=== PATIENT | female | born 1995 | race Caucasian/White ===

== ENCOUNTER 2023-07-15 08:38 | Outpatient (CLI) | payer BC, SELFPAY ==
[2023-07-15 09:18] LABS: Basophils % 0.8 % (0.1-2.0); Eosinophils # 0.1 K/mm3 (0.0-0.4); Eosinophils % 1.6 % (0.1-12.0); Hemoglobin 13.4 g/dL (12.2-16.2); Lymphocytes # 1.5 K/mm3 (0.7-4.5); Lymphocytes % 32.2 % (10-50); Mean Corpuscular HGB Conc 32.7 g/dL (31.8-35.4); Mean Corpuscular Hemoglobin 31.1 pg (27.0-31.2); Mean Platelet Volume 8.3 fl (7.4-10.4); Monocytes # 0.3 K/mm3 (0.1-1.0); Monocytes % 6.5 % (1.7-9.3); Neutrophils # 2.7 K/mm3 (1.8-7.8); Neutrophils % 58.8 % (37.0-80.0); Platelet Count 285 K/mm3 (142-424); Red Blood Count 4.32 M/mm3 (4.20-5.40); Red Cell Distribution Width 13.9 % (11.5-17.5); White Blood Count 4.6 K/mm3 (4.8-10.8)
[2023-07-15 09:53] LABS: Chloride 107 mmol/L (98-107)
[2023-07-15 09:54] LABS: Sodium 140 mmol/L (136-145)
[2023-07-15 09:56] LABS: Alanine Aminotransferase 38 U/L (12-78); Alkaline Phosphatase 100 U/L (38-126); Aspartate Amino Transferase 39 U/L (14-36); Bilirubin,Total 0.4 mg/dl (0.2-1.3); Blood Urea Nitrogen 9 mg/dl (7-17); Estimated Glomerular Filt Rate 118 ml/min (>60); GFR (African American) 143 ML/MIN (>60)
[2023-07-15 09:57] LABS: Albumin Level 3.9 g/dl (3.5-5.0); Albumin/Globulin Ratio 1.5 (1.1-1.8); Carbon Dioxide 30 mmol/L (22.0-30.0); Chol/HDL Ratio 3.8 (1-3.5); Cholesterol 114 mg/dl (140-200); Globulin 2.6 g/dL (1.3-3.2); Glucose 91 mg/dl (74-100); HDL Cholesterol 30 mg/dl (40-60); Total Protein,Serum 6.5 g/dl (6.3-8.2); Triglycerides 82 mg/dl (30-150); VLDL Cholesterol 16 mg/dL (0-40)
[2023-07-15 10:08] LABS: Direct LDL Cholesterol 70.81 mg/dL (100-129)
[2023-07-15 10:14] LABS: 25-OH Vitamin D, Total 19.3 ng/mL (30-100)
[2023-07-15 10:27] LABS: Thyroid Stimulating Hormone 1.66 uIU/mL (0.465-4.68)
[2023-07-15 11:01] LABS: Hemoglobin A1C 5.4 % (4.0-6.0)
== END 2023-07-15 23:59 | disposition home or self-care (01) ==
LOC: LAB 08:44
PROVIDERS: PCP Internal Medicine Adolescent Medicine; Visit Provider Internal Medicine Adolescent Medicine
DX: Z00.00 Encounter for general adult medical examination without abnormal findings (principal); Z83.3 Family history of diabetes mellitus; Z86.39 Personal history of other endocrine, nutritional and metabolic disease; E55.9 Vitamin D deficiency, unspecified; R74.01 Elevation of levels of liver transaminase levels; D72.819 Decreased white blood cell count, unspecified
CPT/HCPCS: 36415; 80053; 80061; 82306; 83036; 84443; 85025

== ENCOUNTER 2023-11-02 10:29 | Outpatient (CLI) | payer BC, SELFPAY ==
[2023-11-02 12:47] LABS: HCG,Quantitative 13454 mIU/ml (0-5.42)
[2023-11-03 12:12] LABS: Progesterone 7.1 ng/mL (.)
== END 2023-11-02 23:59 | disposition home or self-care (01) ==
LOC: LAB 10:30
PROVIDERS: PCP Internal Medicine Adolescent Medicine; Visit Provider Obstetrics & Gynecology
DX: Z34.90 Encounter for supervision of normal pregnancy, unspecified, unspecified trimester (principal)
CPT/HCPCS: 36415; 84144; 84702

== ENCOUNTER 2023-11-04 07:11 | Outpatient (CLI) | payer BC, SELFPAY ==
[2023-11-04 10:17] LABS: HCG,Quantitative 18596 mIU/ml (0-5.42)
== END 2023-11-04 23:59 | disposition home or self-care (01) ==
LOC: LAB 07:13
PROVIDERS: PCP Internal Medicine Adolescent Medicine; Visit Provider Obstetrics & Gynecology
DX: Z34.90 Encounter for supervision of normal pregnancy, unspecified, unspecified trimester (principal)
CPT/HCPCS: 36415; 84702

== ENCOUNTER 2023-11-09 10:38 | Outpatient (CLI) | payer BC, SELFPAY ==
--- NOTE | 2023-11-09 10:38 | US_ITS ---
PROCEDURE: US OB <= 14 WEEKS FETUS CLINICAL INDICATION: dates COMPARISON: No exams were available for comparison FINDINGS: Transvaginal sonographic images of the pelvis were obtained. From her last menstrual period she is 7weeks 5days. An intrauterine gestational sac is present with a pole with a crown-rump length of 10 mm This correlates to a gestational age of 7weeks 1day. ASHLEY 06/26/2024 heart tones are present with an FHR of 139bpm. Yolk sac is noted. The yolk sac measures 5.4 mm. The right ovary is seen and appears normal. The left ovary is seen and appears normal. There is no fluid in the cul-de-sac. IMPRESSION: 1. Viable fetus within the uterine cavity. 2. [place]-rump length is 10 mm consistent with a fetus 7 weeks 1 day, ASHLEY 06/26/2024. 3. Both ovaries are seen and appear normal. 4. No fluid in the cul-de-sac. Dictated by: Robert Frost MD 11/09/2023 13:47 Robert Frost MD in [place] 11/09/2023 13:47
== END 2023-11-09 23:59 | disposition home or self-care (01) ==
LOC: RAD 10:38
PROVIDERS: PCP Internal Medicine Adolescent Medicine; Visit Provider Obstetrics & Gynecology
DX: Z34.91 Encounter for supervision of normal pregnancy, unspecified, first trimester (principal); E55.9 Vitamin D deficiency, unspecified; R79.89 Other specified abnormal findings of blood chemistry; Z3A.01 Less than 8 weeks gestation of pregnancy
CPT/HCPCS: 76801

== ENCOUNTER 2023-11-09 12:03 | Outpatient (CLI) | payer BC, SELFPAY ==
[2023-11-09 12:54] LABS: Basophils # 0.1 K/mm3 (0-0.2); Basophils % 0.6 % (0.1-2.0); Eosinophils # 0.1 K/mm3 (0.0-0.4); Eosinophils % 0.7 % (0.1-12.0); Hematocrit 42.3 % (37.0-47.0); Hemoglobin 13.4 g/dL (12.2-16.2); Lymphocytes # 1.8 K/mm3 (0.7-4.5); Lymphocytes % 18.2 % (10-50); Mean Corpuscular HGB Conc 31.7 g/dL (31.8-35.4); Mean Corpuscular Volume 94.7 fl (81-99); Mean Platelet Volume 7.9 fl (7.4-10.4); Monocytes # 0.5 K/mm3 (0.1-1.0); Neutrophils # 7.5 K/mm3 (1.8-7.8); Neutrophils % 75.6 % (37.0-80.0); Platelet Count 319 K/mm3 (142-424); Red Blood Count 4.47 M/mm3 (4.20-5.40); Red Cell Distribution Width 14.4 % (11.5-17.5)
[2023-11-10 09:38] LABS: HCV Ab Non Reactive (Non Reactive); Hepatitis B Surface Antigen Negative (Negative)
[2023-11-10 11:00] LABS: HIV (1&2) Antibody Rapid NONREACTIVE (NONREACTIVE)
[2023-11-10 12:13] LABS: Rapid Plasma Reagin Ab Titer Non Reactive titer (NonRea<1:1); Rubella Antibodies, IgG <0.90 index (Immune >0.99)
[2023-11-11 21:40] LABS: Neisseria gonorrhoeae, NAA Negative (Negative)
== END 2023-11-09 23:59 | disposition home or self-care (01) ==
LOC: LAB 12:04
PROVIDERS: PCP Internal Medicine Adolescent Medicine; Visit Provider Obstetrics & Gynecology
DX: Z34.90 Encounter for supervision of normal pregnancy, unspecified, unspecified trimester (principal)
CPT/HCPCS: 86803; 86703; 36415; 85025; 86593; 86762; 86850; 87086; 87340; 87491; 87591

== ENCOUNTER 2024-01-26 08:10 | Outpatient (CLI) | payer BC, SELFPAY ==
[2024-01-26 09:10] LABS: Basophils # 0.1 K/mm3 (0-0.2); Basophils % 0.5 % (0.1-2.0); Eosinophils # 0.1 K/mm3 (0.0-0.4); Eosinophils % 0.9 % (0.1-12.0); Hematocrit 38.3 % (37.0-47.0); Hemoglobin 13.2 g/dL (12.2-16.2); Lymphocytes # 1.6 K/mm3 (0.7-4.5); Lymphocytes % 14.6 % (10-50); Mean Corpuscular HGB Conc 34.6 g/dL (31.8-35.4); Mean Corpuscular Hemoglobin 31.7 pg (27.0-31.2); Mean Corpuscular Volume 91.7 fl (81-99); Monocytes # 0.4 K/mm3 (0.1-1.0); Monocytes % 3.8 % (1.7-9.3); Neutrophils # 8.6 K/mm3 (1.8-7.8); Neutrophils % 80.2 % (37.0-80.0); Platelet Count 268 K/mm3 (142-424); Red Blood Count 4.17 M/mm3 (4.20-5.40); Red Cell Distribution Width 14.1 % (11.5-17.5); White Blood Count 10.7 K/mm3 (4.8-10.8)
[2024-01-26 09:22] LABS: Activated Partial Thrombo Time 29.1 seconds (22.8-30.6); Fibrinogen 430 mg/dL (229.9-363.5); INR 0.91 (0.9-1.1); Prothrombin Time 10.3 seconds (10.1-12.5)
[2024-01-26 09:29] LABS: Alanine Aminotransferase 20 U/L (12-78); Aspartate Amino Transferase 21 U/L (14-36); Blood Urea Nitrogen 6 mg/dl (7-17); Calcium 8.9 mg/dl (8.4-10.2); Carbon Dioxide 20 mmol/L (22.0-30.0); Chloride 106 mmol/L (98-107); Estimated Glomerular Filt Rate 145 ml/min (>60); GFR (African American) 175 ML/MIN (>60); Glucose 99 mg/dl (74-100); Sodium 135 mmol/L (136-145); Uric Acid 4.2 mg/dl (2.5-6.2)
[2024-01-26 09:48] LABS: Collection Time,Urine 24 hours; Total Volume,Urine 1800 mL (600-1600)
[2024-01-26 09:50] LABS: Patient Height,Urine 64 inches; Patient Weight,Urine 241 lbs
[2024-01-26 10:00] LABS: Total Protein 24 Hour,Urine 180 mg/24 hr (40-90)
[2024-01-26 10:04] LABS: Creatinine 24 Hour,Urine 1656 mg/24hr (630-2500); Creatinine Clearance Urine 188.6 mL/min (25-115); Creatinine,Urine Random 92 mg/dL (Not Estab.)
== END 2024-01-26 23:59 | disposition home or self-care (01) ==
LOC: LAB 08:10
PROVIDERS: PCP Internal Medicine Adolescent Medicine; Visit Provider Obstetrics & Gynecology
DX: Z34.92 Encounter for supervision of normal pregnancy, unspecified, second trimester (principal); Z3A.18 18 weeks gestation of pregnancy
CPT/HCPCS: 36415; 80048; 82575; 84155; 84450; 84460; 84550; 85025; 85384; 85610; 85730

== ENCOUNTER 2024-02-07 08:55 | Outpatient (CLI) | payer BC, SELFPAY ==
--- NOTE | 2024-02-07 08:56 | US_ITS ---
PROCEDURE: US OB /MATERNAL DETAIL CLINICAL INDICATION: 20 wk + Anatomy Scan COMPARISON: US US OB <= 14 WEEKS FETUS from 11/09/2023 FINDINGS: Transabdominal sonographic images of the pelvis were obtained. From her established due date she is 20 weeks 4 days. Single viable intrauterine gestation. Cephalic position. Placenta: Posteriorplacenta grade 1. There is an average amount of fluid. The cervix appears satisfactory. Closed and measuring 3.7 cm in length. Complete survey performed and was unremarkable on the submitted images as in PACS. No discrete anomalies identified on survey imaging by technologist. Difficult exam due to body habitus and position. Active fetus. Three-vessel cord with satisfactory umbilical cord insertion. 4- chamber heart noted. Situs, aortic arch, LVOT, RVOT, three-vessel view appear normal. Survey of brain & ventricles Unremarkable. Cerebellum, thalamus, choroid plexus, cisterna magna appear normal. Face and neck survey unremarkable. Profile, nasion, lips and nose appeared normal. Diaphragm and chest views unremarkable. Abdomen: Both kidneys noted and unremarkable. Stomach and bladder noted and satisfactory. Spine: Survey of the spine satisfactory with no anomalies identified nor imaged. Cervical, thoracic, lower spine appear normal. Both arms and legs noted. Amniotic Fluid: Adequate. MVP 4.22 cm Measurements: Average ultrasound age 20weeks 5days. Estimated due date by ultrasound age presentation 06/21/2024. Estimated weight 358g BPD = 20weeks 5days HC = 20weeks 3days AC = 20weeks 3days FL = 20weeks 6days Growth Percentile= 41 Heart Rate = 143bpm Cerebellum = 19weeks 6days Humerus = 20weeks 5days FL/BPD is 0.71 FL/AC is 0.23 IMPRESSION: 1. Viable fetus in the cephalic with a posterior placenta grade 1. 2. The fluid is within normal limits. MVP 4.22 cm 3. Anatomical scan appears normal but incomplete due to position. 4. Suggest repeat scan in 2-3 weeks to look at the heart, nose and lips. 5. biometry is consistent with the dates. Dictated by: Robert Frost MD 02/07/2024 12:25 Robert Frost MD in [place] 02/07/2024 12:25
== END 2024-02-07 23:59 | disposition home or self-care (01) ==
LOC: RAD 08:56
PROVIDERS: PCP Internal Medicine Adolescent Medicine; Visit Provider Obstetrics & Gynecology
DX: Z36.3 Encounter for antenatal screening for malformations (principal); Z3A.20 20 weeks gestation of pregnancy
CPT/HCPCS: 76811

== ENCOUNTER 2024-03-17 09:15 | Outpatient (CLI) | payer BC, SELFPAY ==
[2024-03-17 10:14] LABS: Glucose,Fasting 103 mg/dl (74-100)
[2024-03-17 11:15] LABS: Glucose 1 Hour 116 mg/dL (74-100)
== END 2024-03-17 23:59 | disposition home or self-care (01) ==
LOC: RAD 09:16
PROVIDERS: PCP Internal Medicine Adolescent Medicine; Visit Provider Obstetrics & Gynecology
DX: Z34.90 Encounter for supervision of normal pregnancy, unspecified, unspecified trimester (principal)
CPT/HCPCS: 36415; 82951

== ENCOUNTER 2024-03-21 14:15 | Outpatient (CLI) | payer BC, SELFPAY ==
--- NOTE | 2024-03-21 14:18 | US_ITS ---
PROCEDURE: US OB FOLLOW UP CLINICAL INDICATION: incomplete views of heart, nose and lips. COMPARISON: US US OB <= 14 WEEKS FETUS from 11/09/2023 US US OB /MATERNAL DETAIL from 02/07/2024 FINDINGS: Transabdominal sonographic images of the pelvis were obtained. The following parameters are obtained: From her established due date she is 26weeks 5days Viable fetus in the cephalic presentation with a posterior placenta grade 1. The cervix measures 5.17 cm heart rate: 129bpm bpm. BPD: 28weeks 3days, 88 percentile HC: 27weeks 5days, 53 percentile AC: 26weeks 5days, 38 percentile FL: 26weeks 6days, 38 percentile HC/AC: 1.15 FL/BPD: 0.71 FL/AC: 0.22 Growth percentile: 45 Amniotic fluid: MVP 4.09 cm No obvious anomalies evident. profile seen, stomach, bladder, kidneys, three-vessel cord, four chamber heart appear normal. profile is seen and appears normal. lips and nose appeared normal. heart: Four-chamber heart, three-vessel view, RVOT, LVOT appear normal. IMPRESSION: 1. Viable fetus in the cephalic presentation with a posterior placenta grade 1. 2. The fluid is within normal limits MVP 4.09 cm. 3. Limited anatomical scan appears normal. 4. Lips, nose and heart were seen and the anatomy appears normal. 5. There has been good interval growth with the fetus currently 45th percentile. Dictated by: Robert Frost MD 03/21/2024 16:49 Robert Frost MD in [place] 03/21/2024 16:49
== END 2024-03-21 23:59 | disposition home or self-care (01) ==
LOC: RAD 14:16
PROVIDERS: PCP Internal Medicine Adolescent Medicine; Visit Provider Obstetrics & Gynecology
DX: Z34.90 Encounter for supervision of normal pregnancy, unspecified, unspecified trimester (principal); Z36.2 Encounter for other antenatal screening follow-up; I10 Essential (primary) hypertension; E66.9 Obesity, unspecified
CPT/HCPCS: 76816

== ENCOUNTER 2024-05-11 10:19 | Outpatient (CLI) | payer BC, SELFPAY ==
--- NOTE | 2024-05-11 10:22 | US_ITS ---
PROCEDURE: US OB BIOPHYSICAL PROFILE CLINICAL INDICATION: GHTN COMPARISON: US US OB <= 14 WEEKS FETUS from 11/09/2023 US US OB /MATERNAL DETAIL from 02/07/2024 US US OB FOLLOW UP from 03/21/2024 FINDINGS: Transabdominal sonographic images of the uterus were obtained. From her established due date she is 34weeks 0 days. The following parameters are obtained: Viable Fetus in the cephalic presentation with a posterior placenta grade 2. Average ultrasound age is 35weeks 4days Estimated weight 2,600g, 5 lb 12 oz The cervix measures 4.42 cm. Measurements: heart Rate = 147bpm BPD = 36weeks 2days, 95 percentile HC = 36weeks 4days, 77 percentile AC = 35weeks 5days, 91 percentile FL = 33weeks 2days, 20 percentile HC/AC is 1.02 FL/BPD is 0.72 FL/AC is 0.2 77 percentile Amniotic fluid index: 11.12cm, MVP 4.59 cm Qualitative AFV:2 Breathing movements: 0 Gross Body Movements: 2 Tone: 2 Biophysical profile score: 6 No obvious anomalies evident.Kidneys, stomach, bladder, four-chamber heart, three-vessel cord appear normal. IMPRESSION: 1. Viable fetus in the cephalic presentation with a posterior placenta grade 2. 2. The fluid is within normal limits with an amniotic fluid index 11.12 cm, MVP 4.59 cm. 3. Biophysical profile is 6/8 with no breathing movement seen today but good movement seen. 4. There has been good interval growth with the fetus currently 77th percentile. 5. Limited anatomical scan appears normal. 6. Dr. Farrell was informed of the lack of breathing movement and the patient was sent to labor and delivery. Dictated by: Robert Frost MD 05/12/2024 08:50 Robert Frost MD in [place] 05/12/2024 08:50
[2024-05-11 11:38] LABS: Basophils # 0.1 K/mm3 (0-0.2); Basophils % 0.4 % (0.1-2.0); Eosinophils # 0.1 K/mm3 (0.0-0.4); Eosinophils % 0.5 % (0.1-12.0); Hematocrit 35.8 % (37.0-47.0); Hemoglobin 12.1 g/dL (12.2-16.2); Lymphocytes # 1.3 K/mm3 (0.7-4.5); Lymphocytes % 11.5 % (10-50); Mean Corpuscular HGB Conc 33.8 g/dL (31.8-35.4); Mean Corpuscular Hemoglobin 30.3 pg (27.0-31.2); Mean Corpuscular Volume 89.5 fl (81-99); Mean Platelet Volume 9.9 fl (7.4-10.4); Monocytes # 0.6 K/mm3 (0.1-1.0); Monocytes % 5.4 % (1.7-9.3); Neutrophils # 9.3 K/mm3 (1.8-7.8); Neutrophils % 80.6 % (37.0-80.0); Platelet Count 261 K/mm3 (142-424); Red Cell Distribution Width 13.6 % (11.5-17.5); White Blood Count 11.6 K/mm3 (4.8-10.8)
[2024-05-11 11:48] VITALS: BP 137/84; PULSE 105; RESP 20; TEMP 36.7; O2SAT 95; BMI 43.9
[2024-05-11 12:02] LABS: Activated Partial Thrombo Time 27.3 seconds (22.8-30.6); Fibrinogen 510 mg/dL (229.9-363.5); Prothrombin Time 10.2 seconds (10.1-12.5)
[2024-05-11 12:06] LABS: Creatinine,Urine Random 37 mg/dL (Not Estab.)
[2024-05-11 12:16] LABS: Microscopic, Urine URINE MICROSCOPIC (MICROSCOPIC)
[2024-05-11 12:29] LABS: Appearance,Urine CLEAR (Clear); Bilirubin,Urine Negative (Negative); Blood, Urine Negative (Negative); Color,Urine YELLOW (Yellow); Glucose,Urine (UA) Negative (Negative); Ketones,Urine Negative (Negative); Leukocyte Esterase,Urine TRACE (Negative); Nitrate,Urine Negative (Negative); PH,Urine 7.5 (5.0-8.5); Protein,Urine Negative (Negative); Specific Gravity, Urine 1.015 (1.005-1.030); Urobilinogen,Urine 0.2 EU/dl (0.2)
[2024-05-11 12:44] LABS: Alanine Aminotransferase 21 U/L (12-78); Albumin Level 3.4 g/dl (3.5-5.0); Albumin/Globulin Ratio 1.3 (1.1-1.8); Alkaline Phosphatase 100 U/L (38-126); Aspartate Amino Transferase 43 U/L (14-36); Blood Urea Nitrogen 8 mg/dl (7-17); Calcium 9.1 mg/dl (8.4-10.2); Carbon Dioxide 23 mmol/L (22.0-30.0); Chloride 106 mmol/L (98-107); Creatinine Clearance Estimated 148 mL/min (50-200); Estimated Glomerular Filt Rate 145 ml/min (>60); GFR (African American) 175 ML/MIN (>60); Globulin 2.6 g/dL (1.3-3.2); Glucose 67 mg/dl (74-100); Sodium 132 mmol/L (136-145)
[2024-05-11 12:47] LABS: RBC,Urine Occasional #/hpf (0-3); Squamous Epithelial Cell,Urine Occasional #/hpf (0-5)
[2024-05-11 12:48] LABS: Bacteria,Urine 1+ /lpf
[2024-05-11 13:00] LABS: Bilirubin,Total < 0.1 mg/dl (0.2-1.3)
[2024-05-11 18:44] LABS: Benzodiazepines Screen,Urine Negative ng/ml (<200)
[2024-05-11 18:45] LABS: Amphetamine/Metha Screen,Urine Negative ng/ml (<1000); Barbiturates Screen,Urine Negative ng/ml (<200)
[2024-05-11 18:47] LABS: Cannabinoid Screen,Urine Negative ng/ml (<50)
[2024-05-11 18:48] LABS: Cocaine Screen,Urine Negative ng/ml (<300)
[2024-05-11 18:49] LABS: Methadone Screen,Urine Negative ng/ml (<300); Opiate Screen,Urine Negative ng/ml (<300)
[2024-05-11 18:50] LABS: Phencyclidine Screen,Urine Negative ng/ml (<25)
== END 2024-05-11 13:30 | disposition home or self-care (01) ==
LOC: RAD 10:19 → OBOUT 11:35 → OB 11:35
PROVIDERS: Obstetrics & Gynecology; PCP Internal Medicine Adolescent Medicine; Visit Provider Obstetrics & Gynecology
DX: O10.913 Unspecified pre-existing hypertension complicating pregnancy, third trimester (principal); O36.8330 Maternal care for abnormalities of the fetal heart rate or rhythm, third trimester, not applicable or unspecified; Z3A.34 34 weeks gestation of pregnancy
CPT/HCPCS: 36415; 59025; 76816; 76819; 80053; 80307; 81001; 82570; 84156; 84550; 85025; 85384; 85610; 85730

== ENCOUNTER 2024-05-12 08:53 | Outpatient (CLI) | payer BC, SELFPAY ==
[2024-05-12 09:11] VITALS: BP 142/76; PULSE 118; RESP 18; TEMP 36.6; O2SAT 100; BMI 43.9
--- NOTE | 2024-05-12 10:30 | US_ITS ---
PROCEDURE INFORMATION: Exam: US Biophysical Profile Without Non-Stress Test Exam date and time: 05/12/2024 10:16 AM Age: 28 years old Clinical indication: Screening exam; Routine US screening of fetus; Third trimester (>=28 weeks 0 days); ; Additional info: Repeat bpp TECHNIQUE: Imaging protocol: US biophysical profile without non-stress testing. Total images: 1139 COMPARISON: US OB BIOPHYSICAL PROFILE 05/11/2024 10:28 AM FINDINGS: heart rate: 165 bpm Amniotic fluid index: TYLER is 8.06 cm. BIOPHYSICAL PROFILE: breathing (BPP): 2 /2 gross body movement (BPP): 2 /2 tone (BPP): 2 /2 Amniotic fluid (BPP): 2 /2 Biophysical profile score (BPP): 8 /8 MATERNAL ANATOMY: Cervix: Cervical length measures 4.98 cm. IMPRESSION: Biophysical profile score 8/8.
== END 2024-05-12 11:25 | disposition home or self-care (01) ==
LOC: OBOUT 08:55 → OB 08:56
PROVIDERS: PCP Internal Medicine Adolescent Medicine; Visit Provider Obstetrics & Gynecology
DX: O10.913 Unspecified pre-existing hypertension complicating pregnancy, third trimester (principal); Z3A.34 34 weeks gestation of pregnancy
CPT/HCPCS: 59025; 76819

== ENCOUNTER 2024-05-14 16:12 | Observation (INO) | payer BC, SELFPAY ==
[2024-05-14 16:25] VITALS: BMI 43.9
[2024-05-14 17:07] VITALS: BP 136/81; PULSE 93; RESP 17; TEMP 37.1; O2SAT 96; BMI 43.9
[2024-05-14 17:21] LABS: Microscopic, Urine URINE MICROSCOPIC (MICROSCOPIC)
[2024-05-14 17:26] LABS: Basophils % 0.4 % (0.1-2.0); Eosinophils # 0.1 K/mm3 (0.0-0.4); Eosinophils % 0.8 % (0.1-12.0); Hematocrit 36.5 % (37.0-47.0); Hemoglobin 12.4 g/dL (12.2-16.2); Lymphocytes # 1.5 K/mm3 (0.7-4.5); Lymphocytes % 15.1 % (10-50); Mean Corpuscular Hemoglobin 30.2 pg (27.0-31.2); Mean Corpuscular Volume 88.8 fl (81-99); Mean Platelet Volume 10.3 fl (7.4-10.4); Monocytes # 0.6 K/mm3 (0.1-1.0); Monocytes % 5.9 % (1.7-9.3); Neutrophils # 7.6 K/mm3 (1.8-7.8); Neutrophils % 76.4 % (37.0-80.0); Platelet Count 275 K/mm3 (142-424); Red Blood Count 4.11 M/mm3 (4.20-5.40); Red Cell Distribution Width 13.7 % (11.5-17.5); White Blood Count 9.9 K/mm3 (4.8-10.8)
[2024-05-14 17:30] LABS: Appearance,Urine CLEAR (Clear); Bilirubin,Urine Negative (Negative); Blood, Urine TRACE-L (Negative); Color,Urine YELLOW (Yellow); Glucose,Urine (UA) Negative (Negative); Ketones,Urine Negative (Negative); Leukocyte Esterase,Urine TRACE (Negative); Nitrate,Urine Negative (Negative); PH,Urine 6.5 (5.0-8.5); Protein,Urine Negative (Negative); Specific Gravity, Urine <= 1.005 (1.005-1.030); Urobilinogen,Urine 0.2 EU/dl (0.2)
[2024-05-14 17:33] LABS: Total Protein,Urine Random < 5.0 mg/dL (0.0-12.0)
[2024-05-14] MEDS: BETAMETHASONE ACET/PHOS 6MG/ML 5ML MDV 12 MG IM (17:36)
[2024-05-14] MEDS: LABETALOL 100MG TABLET 200 MG PO (17:36)
[2024-05-14 17:47] LABS: Bacteria,Urine Trace /lpf; RBC,Urine Occasional #/hpf (0-3); WBC,Urine Occasional #/hpf (0-3)
[2024-05-14 17:55] LABS: Alanine Aminotransferase 31 U/L (12-78); Albumin Level 3.9 g/dl (3.5-5.0); Albumin/Globulin Ratio 1.3 (1.1-1.8); Alkaline Phosphatase 114 U/L (38-126); Anion Gap 9.9 mEq/L (5-15); Aspartate Amino Transferase 39 U/L (14-36); Bilirubin,Total 0.2 mg/dl (0.2-1.3); Blood Urea Nitrogen 8 mg/dl (7-17); Calcium 9.1 mg/dl (8.4-10.2); Carbon Dioxide 22 mmol/L (22.0-30.0); Chloride 107 mmol/L (98-107); Creatinine Clearance Estimated 148 mL/min (50-200); Estimated Glomerular Filt Rate 145 ml/min (>60); GFR (African American) 175 ML/MIN (>60); Glucose 86 mg/dl (74-100); Potassium 3.9 mmoL/L (3.5-5.1); Sodium 135 mmol/L (136-145); Total Protein,Serum 6.9 g/dl (6.3-8.2); Uric Acid 3.9 mg/dl (2.5-6.2)
[2024-05-14 18:01] LABS: Fibrinogen 486 mg/dL (208.1-352.0)
[2024-05-14 18:33] LABS: Creatinine,Urine Random 175 mg/dL (Not Estab.)
[2024-05-14 20:36] VITALS: BP 141/78; PULSE 109; RESP 21; TEMP 36.9; O2SAT 97
[2024-05-15 00:11] VITALS: BP 143/81; PULSE 105; O2SAT 97
[2024-05-15 04:22] VITALS: BP 125/81; PULSE 95; RESP 18; TEMP 36.7; O2SAT 96
[2024-05-15 08:52] VITALS: BP 131/82; PULSE 111; RESP 18; TEMP 37; O2SAT 97
[2024-05-15] MEDS: LABETALOL 100MG TABLET 200 MG PO (09:00)
--- NOTE | 2024-05-15 09:19 | P.HP_ITS ---
History of Present Illness *Admission Date: 05/14/24 *Reason for visit:: chronic hypertension *History of present illness: Jennifer Nobles is a 28-year-old at 34 weeks and 4 days gestation who was sent to labor and delivery for evaluation of blood pressures. Her has been chronic hypertension and obesity. She has been taking labetalol 100mg BID which was increased to 200mg BID on admission. On presentation patient endorsed good movement and denies any leakage of fluid or vaginal bleeding. O+, antibody negative, rubella non-immune, hepatitis B negative, hepatitis C negative, RPR negative, HIV negative 1 hour GTT: 116 GBS unknown PFSH PFS Disclaimer: The information contained in this section may have been updated after the patient was seen, as this information can be updated by other users. Medical History Chronic hypertension Vitamin D deficiency Surgical History No significant past surgical history Family History Other Hypertension Social History (Updated 05/15/24 @ 04:43 by Karlene Wilks RN) Smoking Status: Never smoker alcohol intake: never current occupational status: employed Travel in the last 8 weeks: None Have you lived/traveled outside US in past 30 days?: No Contact w/someone who lives/traveled outside US past 30 days?: No Exposure to someone with infectious disease in past 14 days?: No Do you have a fever (greater than 100.4 F or 38 C)?: No Have you tested positive for COVID-19: No Exposed to someone with COVID-19 in past 14 days?: No Do you have a sore throat?: No Do you have a cough?: No Do you have any weakness?: No Are you experiencing any nausea/vomitting?: No Do you have any diarrhea?: No Are you experiencing any unusual bleeding?: No Do you have any muscle aches/pain?: No Do you have any abdominal pain?: No Are you experiencing loss of taste or smell?: No Other Medical History Have you received the Flu Vaccine for this season: No Have you received the Pneumonia Vaccine: No Review of Systems Review of Systems Review of systems (narrative): Review of Systems Constitutional: Denies fever, chills, and sweats Eyes: Denies vision change/ pain Respiratory: Denies cough and shortness of breath Cardiovascular: Denies chest pain and lightheadedness Gastrointestinal: Denies abdominal pain or contractions. Denies nausea, vomiting. Genitourinary: Denies dysuria and incontinence Musculoskeletal: Denies shoulder pain and back pain Neurological: Denies change in speech or headaches Meds Home Medications and Allergies Home Medications ?Medication ?Instructions ?Recorded ?Confirmed ?Type ergocalciferol (vitamin D2) 1,250 50,000 unit PO WEEKLY 07/22/23 05/14/24 History mcg (50,000 unit) capsule vits no.126-ferrous fum tab PO 12/30/23 05/14/24 History 28 mg iron-folic acid 800 mcg tablet (Classic ) aspirin 81 mg tablet,delayed 81 mg PO DAILY 01/24/24 05/14/24 History release (Adult Aspirin Regimen) labetalol 100 mg tablet 100 mg PO BID #60 tabs 02/21/24 05/14/24 Rx New Prescriptions to Start Prescriptions: Allergies Allergy/AdvReac Type Severity Reaction Status Date / Time No Known Allergies Allergy Verified 05/14/24 14:59 Exam Data for Last 24 hours Vital signs and Labs for Last 24 Hours: Temp Pulse Resp BP Pulse Ox O2 Del Method 98.6 F 111 H 18 131/82 97 Room Air 05/15/24 08:52 05/15/24 08:52 05/15/24 08:52 05/15/24 08:52 05/15/24 08:52 05/15/24 08:52 Laboratory Results - last 24 hr 05/14/24 16:30: Urine Creatinine 175, Urine Total Protein < 5.0 05/14/24 16:50: WBC 9.9, RBC 4.11 L, Hgb 12.4, Hct 36.5 L, MCV 88.8, MCH 30.2, MCHC 34.0, RDW 13.7, Plt Count 275, MPV 10.3, Neut % (Auto) 76.4, Lymph % (Auto) 15.1, [place] % (Auto) 5.9, Eos % (Auto) 0.8, Baso % (Auto) 0.4, Neut # (Auto) 7.6, Lymph # (Auto) 1.5, [place] # (Auto) 0.6, Eos # (Auto) 0.1, Baso # (Auto) 0.0, Fibrinogen 486 H, Sodium 135 L, Potassium 3.9, Chloride 107, Carbon Dioxide 22, Anion Gap 9.9, BUN 8, Creatinine 0.50 L, Estimated Creat Clear 148, Estimated GFR 145, Est GFR ( Amer) 175, Glucose 86, Uric Acid 3.9, Calcium 9.1, Total Bilirubin 0.2, AST 39 H, ALT 31, Alkaline Phosphatase 114, Total Protein 6.9, Albumin 3.9, Globulin 3.0, Albumin/Globulin Ratio 1.3, Urine Color Yellow, Urine Appearance Clear, Urine pH 6.5, Ur Specific [place] <= 1.005, Urine Protein Negative, Urine Glucose (UA) Negative, Urine Ketones Negative, Urine Blood Trace-l, Urine Nitrate Negative, Urine Bilirubin Negative, Urine Urobilinogen 0.2, Ur Leukocyte Esterase Trace, Urine RBC Occasional, Urine WBC Occasional, Ur Squamous Epith Cells 3-5, Urine Bacteria Trace I & O for Last 24 hours: Intake & Output 05/12/24 05/13/24 05/14/24 05/15/24 23:59 23:59 23:59 23:59 Weight 264 lb Narrative: General: patient is alert oriented in no acute distress and responds appropriately to questions. HEENT: NCAT, EOMI, moist mucous membranes, neck supple with full ROM Cardiovascular: RRR +S1/S2, no murmurs or rubs Pulmonary: Clear to auscultation bilaterally, nonlabored breathing, symmetric chest rise Abdominal: Gravid abdomen appropriate for gestation. No guarding, rebound, or tenderness noted. Extremities: +2 edema, no tenderness or cyanosis noted Skin: Normal turgor, intact, warm. Negative for erythema, pallor, petechia, or lesions Neurologic: Negative for sensory or motor deficit Psychiatric: Normal affect, normal thought process, good judgment and insight, no depression or anxious mood appreciated. *Routine HEENT Exam Head: Present normocephalic and atraumatic Eye: Present EOMI, PERRL and normal accommodation; Absent conjunctival icterus, scleral injection, nystagmus or exophthalmos ENT: Present mucous membranes moist *Routine Respiratory Exam Respiratory: Present CTA bilaterally, normal respiratory effort, able to speak in complete sentences and symmetric chest movement; Absent accessory muscle use, decreased breath sounds, rales, respiratory distress, wheezes, distant breath sounds or diminished air movement *Routine Cardiovascular Exam Cardiovascular: Present RRR, Normal S1 and Normal S2; Absent murmur or gallop *Routine Abdominal Exam Abdominal: Present soft and normoactive bowel sounds; Absent tenderness, distended, rebound or guarding *Routine Rectal Exam Rectal:: deferred *Routine Genitalia Exam Genitalia:: normal female Assessment and Plan *Assessment and plan (1) Chronic hypertension: Status: Acute Category: Medical Code(s): I10 - Essential (primary) hypertension (2) Obesity: Status: Acute Category: Medical Code(s): E66.9 - Obesity, unspecified (3) 34 weeks gestation of : Status: Acute Category: Medical Code(s): Z3A.34 - 34 weeks gestation of Plan #Chronic Hypertension - Monitor vitals - Admit to L&D for blood pressure monitoring - NST q6 hours - Blood type: O+ - Hemoglobin: 12.4, Plt: 275 - Initiate 24hour urine - Increase labetalol for 200mg BID - PIH labs on abmission and once daily - Discussed the risks and benefits of steroids. With shared decision making pt elected to proceed with steroids for FLM. 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
[2024-05-15 13:14] LABS: Basophils # 0.1 K/mm3 (0-0.2); Basophils % 0.3 % (0.1-2.0); Hematocrit 34.1 % (37.0-47.0); Hemoglobin 11.5 g/dL (12.2-16.2); Lymphocytes # 1.4 K/mm3 (0.7-4.5); Lymphocytes % 9.3 % (10-50); Mean Corpuscular HGB Conc 33.7 g/dL (31.8-35.4); Mean Corpuscular Hemoglobin 30.3 pg (27.0-31.2); Mean Corpuscular Volume 89.7 fl (81-99); Mean Platelet Volume 10.2 fl (7.4-10.4); Monocytes # 0.5 K/mm3 (0.1-1.0); Monocytes % 3.1 % (1.7-9.3); Neutrophils # 13.3 K/mm3 (1.8-7.8); Neutrophils % 85.6 % (37.0-80.0); Platelet Count 273 K/mm3 (142-424); Red Cell Distribution Width 13.8 % (11.5-17.5); White Blood Count 15.6 K/mm3 (4.8-10.8)
[2024-05-15 13:19] LABS: Chloride 105 mmol/L (98-107)
[2024-05-15 13:20] LABS: Albumin Level 3.6 g/dl (3.5-5.0); Potassium 3.8 mmoL/L (3.5-5.1); Sodium 133 mmol/L (136-145)
[2024-05-15 13:22] LABS: Anion Gap 13.8 mEq/L (5-15); Blood Urea Nitrogen 9 mg/dl (7-17); Carbon Dioxide 18 mmol/L (22.0-30.0); Creatinine Clearance Estimated 148 mL/min (50-200); Estimated Glomerular Filt Rate 145 ml/min (>60); GFR (African American) 175 ML/MIN (>60)
[2024-05-15 13:23] LABS: Alanine Aminotransferase 38 U/L (12-78); Albumin/Globulin Ratio 1.2 (1.1-1.8); Alkaline Phosphatase 104 U/L (38-126); Aspartate Amino Transferase 38 U/L (14-36); Bilirubin,Total 0.2 mg/dl (0.2-1.3); Calcium 8.7 mg/dl (8.4-10.2); Globulin 2.9 g/dL (1.3-3.2); Total Protein,Serum 6.5 g/dl (6.3-8.2)
[2024-05-15 13:46] LABS: Glucose 185 mg/dl (74-100)
[2024-05-15 13:57] LABS: MANUAL DIFFERENTIAL MANUAL DIFFERENTIAL (MANUAL DIFF)
[2024-05-15 14:15] LABS: Activated Partial Thrombo Time 26.1 seconds (22.5-28.5); Fibrinogen 500 mg/dL (208.1-352.0); INR 0.88 (0.9-1.1); Prothrombin Time 9.8 seconds (9.2-12.1)
[2024-05-15 14:38] LABS: Uric Acid 3.8 mg/dl (2.5-6.2)
[2024-05-15 15:01] LABS: Lymphocytes % 21 % (10-50); Neutrophils % 79 % (42-76); Total Cells Counted 100
[2024-05-15 15:02] LABS: Platelet Estimate Normal; RBC Morphology Normal
[2024-05-15 15:39] VITALS: BP 145/87; PULSE 114; RESP 17; TEMP 36.9; O2SAT 98
--- NOTE | 2024-05-15 17:16 | P.DS_ITS ---
General Admission date:: 05/14/24 Discharge date: 05/15/24 HPI HPI HPI: Jennifer Nobles is a 28-year-old at 34 weeks and 4 days gestation who was sent to labor and delivery for evaluation of blood pressures. Her has been chronic hypertension and obesity. She has been taking labetalol 100mg BID which was increased to 200mg BID on admission. On presentation patient endorsed good movement and denies any leakage of fluid or vaginal bleeding. O+, antibody negative, rubella non-immune, hepatitis B negative, hepatitis C negative, RPR negative, HIV negative 1 hour GTT: 116 GBS unknown Hospital Course Hospital Course Hospital Course: Jennifer was admitted for observation. Her blood pressure medicine was increased from 100 to 200 mg of labetalol twice daily. Her blood pressure remained stable during her hospital course. She had serial PIH labs completed. She completed a 24-hour urine. She completed betamethasone x 2 for lung maturity. We are currently evaluating her for chronic hypertension with elevated pressures versus chronic hypertension with superimposed preeclampsia. At time of discharge 24- hour urine was pending. She has a follow-up on with a blood pressure check and she will follow-up subsequently on Tuesday. Strict return precautions were reviewed with the patient in detail to include increased blood pressure, vision changes, headaches, and right upper quadrant pain. Patient and significant other voiced understanding. Exam Data for Last 24 hours Vital signs and Labs for Last 24 Hours: Temp Pulse Resp BP Pulse Ox O2 Del Method 98.4 F 114 H 17 145/87 H 98 Room Air 05/15/24 15:39 05/15/24 15:39 05/15/24 15:39 05/15/24 15:39 05/15/24 15:39 05/15/24 15:39 Laboratory Results - last 24 hr 05/14/24 16:30: Urine Creatinine 175, Urine Total Protein < 5.0 05/14/24 16:50: WBC 9.9, RBC 4.11 L, Hgb 12.4, Hct 36.5 L, MCV 88.8, MCH 30.2, MCHC 34.0, RDW 13.7, Plt Count 275, MPV 10.3, Neut % (Auto) 76.4, Lymph % (Auto) 15.1, [place] % (Auto) 5.9, Eos % (Auto) 0.8, Baso % (Auto) 0.4, Neut # (Auto) 7.6, Lymph # (Auto) 1.5, [place] # (Auto) 0.6, Eos # (Auto) 0.1, Baso # (Auto) 0.0, Fibrinogen 486 H, Sodium 135 L, Potassium 3.9, Chloride 107, Carbon Dioxide 22, Anion Gap 9.9, BUN 8, Creatinine 0.50 L, Estimated Creat Clear 148, Estimated GFR 145, Est GFR ( Amer) 175, Glucose 86, Uric Acid 3.9, Calcium 9.1, Total Bilirubin 0.2, AST 39 H, ALT 31, Alkaline Phosphatase 114, Total Protein 6.9, Albumin 3.9, Globulin 3.0, Albumin/Globulin Ratio 1.3, Urine Color Yellow, Urine Appearance Clear, Urine pH 6.5, Ur Specific [place] <= 1.005, Urine Protein Negative, Urine Glucose (UA) Negative, Urine Ketones Negative, Urine Blood Trace-l, Urine Nitrate Negative, Urine Bilirubin Negative, Urine Urobilinogen 0.2, Ur Leukocyte Esterase Trace, Urine RBC Occasional, Urine WBC Occasional, Ur Squamous Epith Cells 3-5, Urine Bacteria Trace 05/15/24 13:05: WBC 15.6 H D, RBC 3.80 L, Hgb 11.5 L, Hct 34.1 L, MCV 89.7, MCH 30.3, MCHC 33.7, RDW 13.8, Plt Count 273, MPV 10.2, Neut % (Auto) 85.6 H, Lymph % (Auto) 9.3 L, [place] % (Auto) 3.1, Eos % (Auto) 0.0 L, Baso % (Auto) 0.3, Neut # (Auto) 13.3 H, Lymph # (Auto) 1.4, [place] # (Auto) 0.5, Eos # (Auto) 0.0, Baso # (Auto) 0.1, Total Counted 100, Neutrophils % (Manual) 79 H, Lymphocytes % (Manual) 21, Platelet Estimate Normal, RBC Morphology Normal, PT 9.8, INR 0.88 L , APTT 26.1, Fibrinogen 500 H, Sodium 133 L, Potassium 3.8, Chloride 105, Carbon Dioxide 18 L, Anion Gap 13.8, BUN 9, Creatinine 0.50 L, Estimated Creat Clear 148, Estimated GFR 145, Est GFR ( Amer) 175, Glucose 185 H D, Uric Acid 3.8, Calcium 8.7, Total Bilirubin 0.2, AST 38 H, ALT 38, Alkaline Phosphatase 104, Total Protein 6.5, Albumin 3.6, Globulin 2.9, Albumin/Globulin Ratio 1.2 I & O for Last 24 hours: Intake & Output 05/12/24 05/13/24 05/14/24 05/15/24 23:59 23:59 23:59 23:59 Weight 264 lb Constitutional Constitutional: no acute distress *Routine HEENT Exam Head: Present normocephalic Eye: Present EOMI and PERRL ENT: Present mucous membranes moist *Routine Neck Exam Neck: Present supple; Absent lymphadenopathy *Routine Respiratory Exam Respiratory: Present CTA bilaterally *Routine Cardiovascular Exam Cardiovascular: Present RRR *Routine Abdominal Exam Abdominal: Present soft and normoactive bowel sounds; Absent tenderness *Routine Extremities Exam Extremities: Absent cyanosis, clubbing or edema *Routine Skin Exam Skin: Present warm; Absent rash *Routine Neurological Exam Neurological: Present alert and oriented X3 Results Data Completed and Pending Labs on day of discharge: Labs from last 24 hours 05/15/24 05/14/24 05/14/24 13:05 16:50 16:30 WBC 15.6 H D 9.9 RBC 3.80 L 4.11 L Hgb 11.5 L 12.4 Hct 34.1 L 36.5 L MCV 89.7 88.8 MCH 30.3 30.2 MCHC 33.7 34.0 RDW 13.8 13.7 Plt Count 273 275 MPV 10.2 10.3 Neut % (Auto) 85.6 H 76.4 Lymph % (Auto) 9.3 L 15.1 [place] % (Auto) 3.1 5.9 Eos % (Auto) 0.0 L 0.8 Baso % (Auto) 0.3 0.4 Neut # (Auto) 13.3 H 7.6 Lymph # (Auto) 1.4 1.5 [place] # (Auto) 0.5 0.6 Eos # (Auto) 0.0 0.1 Baso # (Auto) 0.1 0.0 Total Counted 100 Neutrophils % (Manual) 79 H Lymphocytes % (Manual) 21 Platelet Estimate Normal RBC Morphology Normal PT 9.8 INR 0.88 L APTT 26.1 Fibrinogen 500 H 486 H Sodium 133 L 135 L Potassium 3.8 3.9 Chloride 105 107 Carbon Dioxide 18 L 22 Anion Gap 13.8 9.9 BUN 9 8 Creatinine 0.50 L 0.50 L Estimated Creat Clear 148 148 Estimated GFR 145 145 Est GFR ( Amer) 175 175 Glucose 185 H D 86 Uric Acid 3.8 3.9 Calcium 8.7 9.1 Total Bilirubin 0.2 0.2 AST 38 H 39 H ALT 38 31 Alkaline Phosphatase 104 114 Total Protein 6.5 6.9 Albumin 3.6 3.9 Globulin 2.9 3.0 Albumin/Globulin Ratio 1.2 1.3 Urine Color Yellow Urine Appearance Clear Urine pH 6.5 Ur Specific [place] <= 1.005 Urine Protein Negative Urine Glucose (UA) Negative Urine Ketones Negative Urine Blood Trace-l Urine Nitrate Negative Urine Bilirubin Negative Urine Urobilinogen 0.2 Ur Leukocyte Esterase Trace Urine RBC Occasional Urine WBC Occasional Ur Squamous Epith Cells 3-5 Urine Bacteria Trace Urine Creatinine 175 Urine Total Protein < 5.0 DS: Diagnosis Discharge Diagnosis (1) Chronic hypertension: Status: Acute Code(s): I10 - Essential (primary) hypertension (2) Obesity: Status: Acute Code(s): E66.9 - Obesity, unspecified (3) 34 weeks gestation of : Status: Acute Code(s): Z3A.34 - 34 weeks gestation of Meds Home Medications and Allergies Home Medications ?Medication ?Instructions ?Recorded ?Confirmed ?Type ergocalciferol (vitamin D2) 1,250 50,000 unit PO WEEKLY 07/22/23 05/15/24 History mcg (50,000 unit) capsule vits no.126-ferrous fum 1 tab PO DAILY 12/30/23 05/15/24 History 28 mg iron-folic acid 800 mcg tablet (Classic ) aspirin 81 mg tablet,delayed 81 mg PO DAILY 01/24/24 05/15/24 History release (Adult Aspirin Regimen) labetalol 100 mg tablet 200 mg (2 x 100 mg) PO BID #60 tabs 05/15/24 Rx New Prescriptions to Start Prescriptions: labetalol Tatyana Farrell Allergies Allergy/AdvReac Type Severity Reaction Status Date / Time No Known Allergies Allergy Verified 05/14/24 14:59 Discharge Plan Disposition Patient Disposition: Home, Self-Care Follow up Plan Follow up with: Tatyana Farrell DO [Staff Physician] - Enter time for follow up Prescriptions/Medication Reconciliation: New labetalol 100 mg Tablet 200 mg PO BID Qty: 60 1RF Continued aspirin [Adult Aspirin Regimen] 81 mg tablet,delayed release (DR/EC) 81 mg PO DAILY ergocalciferol (vitamin D2) 1,250 mcg (50,000 unit) capsule 50,000 unit PO WEEKLY Patient Comments: TAKE 1 CAPSULE BY MOUTH ONCE WEEKLY FOR 12 WEEKS Classic 28 mg iron- 800 mcg tablet 1 tab PO DAILY Discontinued labetalol 100 mg tablet 100 mg PO BID Qty: 60 2RF Problem Reconciliation Problems Reviewed?: Yes Patient Discharge Instructions ACTIVITY: Continue current activity DIET: regular diet Print Language: Bel[place]ian Providers Primary Care Provider: Gunnar Almonte Provider: Tatyana Farrell Attending Provider: Tatyana Farrell
[2024-05-15] MEDS: BETAMETHASONE ACET/PHOS 6MG/ML 5ML MDV 12 MG IM (17:43)
[2024-05-15 19:31] LABS: Total Protein,Urine Random < 5.0 mg/dL (0.0-12.0)
[2024-05-15 19:32] LABS: Total Protein 24 Hour,Urine 85 mg/24 hr (40-90); Total Volume,Urine 1700 mL (600-1600)
== END 2024-05-15 19:50 | disposition home or self-care (01) ==
PROVIDERS: Admitting Provider Obstetrics & Gynecology; PCP Internal Medicine Adolescent Medicine; Visit Provider Obstetrics & Gynecology
DX: O10.013 Pre-existing essential hypertension complicating pregnancy, third trimester (principal); Z3A.34 34 weeks gestation of pregnancy; O99.213 Obesity complicating pregnancy, third trimester; E66.9 Obesity, unspecified
CPT/HCPCS: 36415; 59025; 80053; 81001; 82570; 84155; 84156; 84550; 85007; 85025; 85027; 85384; 85610; 85730; G0378; J0702

== ENCOUNTER 2024-05-17 10:08 | Outpatient (CLI) | payer BC, SELFPAY ==
--- NOTE | 2024-05-17 10:16 | US_ITS ---
PROCEDURE: US OB BIOPHYSICAL PROFILE CLINICAL INDICATION: GHTN COMPARISON: US US OB /MATERNAL DETAIL from 02/07/2024 US US OB FOLLOW UP from 03/21/2024 US US OB BIOPHYSICAL PROFILE from 05/11/2024 US US OB BIOPHYSICAL PROFILE from 05/12/2024 FINDINGS: Transabdominal sonographic images of the uterus were obtained. From her established due date she is 34weeks 6days. The following parameters are obtained: Viable Fetus in the cephalic presentation with a fundal placenta grade 2. The cervix measures 3.99-4.54 cm. Measurements: heart Rate = 133bpm Amniotic fluid index: 9.13cm, MVP 2.76 cm. Qualitative AFV:2 Breathing movements: 2 Gross Body Movements: 2 Tone: 2 Biophysical profile score: 8 No obvious anomalies evident.Kidneys, bladder, stomach, four-chamber heart, three-vessel cord appear normal. IMPRESSION: 1. Viable fetus in the cephalic presentation with a fundal placenta grade 2. 2. The fluid is within normal limits with amniotic fluid index 9.13 cm, MVP 2.76 cm. 3. Biophysical profile is 8/8 with good breathing movement and movement seen today. 4. Limited anatomical scan appears normal. Dictated by: Robert Frost MD 05/17/2024 13:23 Robert Frost MD in [place] 05/17/2024 13:23
== END 2024-05-17 23:59 | disposition home or self-care (01) ==
LOC: RAD 10:09
PROVIDERS: PCP Obstetrics & Gynecology; Visit Provider Obstetrics & Gynecology
DX: O13.3 Gestational [pregnancy-induced] hypertension without significant proteinuria, third trimester (principal); Z3A.34 34 weeks gestation of pregnancy
CPT/HCPCS: 76819

== ENCOUNTER 2024-05-25 13:42 | Outpatient (CLI) | payer BC, SELFPAY ==
--- NOTE | 2024-05-25 13:46 | US_ITS ---
PROCEDURE: US OB BIOPHYSICAL PROFILE CLINICAL INDICATION: CHTN COMPARISON: US US OB <= 14 WEEKS FETUS from 11/09/2023 US US OB /MATERNAL DETAIL from 02/07/2024 US OB FOLLOW UP from 03/21/2024 US OB BIOPHYSICAL PROFILE from 05/11/2024 US OB BIOPHYSICAL PROFILE from 05/12/2024 US OB BIOPHYSICAL PROFILE from 05/17/2024 FINDINGS: Transabdominal sonographic images of the uterus were obtained. From her established due date she is 36weeks 0 days. The following parameters are obtained: Viable Fetus in the cephalic presentation with a right lateral placenta grade 2. Average ultrasound age is 37weeks 1day Estimated weight 3,066g, 6 lb 12 oz The cervix measures 3.45 cm. Measurements: heart Rate = 147bpm BPD = 37weeks 0 days, 82 percentile HC = 38weeks 3days, 76 percentile AC = 37weeks 2days, 88 percentile FL = 35weeks 5days, 34 percentile HC/AC is 1.01 FL/BPD is 0.76 FL/AC is 0.21 76 percentile Amniotic fluid index: 9.0cm, MVP 4.52 cm Qualitative AFV:2 Breathing movements: 2 Gross Body Movements: 2 Tone: 2 Biophysical profile score: 8 No obvious anomalies evident.Kidneys, bladder, stomach, four-chamber heart, three-vessel cord appear normal. IMPRESSION: 1. Viable fetus in the cephalic presentation with a right lateral placenta grade 2. 2. The fluid is within normal limits with an amniotic fluid index 9.0 cm, MVP 4.52 cm. 3. Biophysical profile is 8/8 with good breathing movement and movement seen. 4. There has been good interval growth with the fetus currently 76th percentile. 5. Limited anatomical scan appears normal. Dictated by: Robert Frost MD 05/26/2024 09:26 Robert Frost MD in OV 05/26/2024 09:26
== END 2024-05-25 23:59 | disposition home or self-care (01) ==
LOC: RAD 13:44
PROVIDERS: PCP Internal Medicine Adolescent Medicine; Visit Provider Obstetrics & Gynecology
DX: I10 Essential (primary) hypertension (principal); Z34.03 Encounter for supervision of normal first pregnancy, third trimester
CPT/HCPCS: 76816; 76819

== ENCOUNTER 2024-05-26 17:33 | Outpatient (CLI) | payer BC, SELFPAY ==
[2024-05-26 17:38] VITALS: BMI 43.9
[2024-05-26] MEDS: LABETALOL 100MG TABLET 200 MG PO (18:00)
[2024-05-26 18:05] VITALS: BP 143/91; PULSE 103; RESP 16; TEMP 37.2; O2SAT 96; BMI 43.9
[2024-05-26 18:26] LABS: Microscopic, Urine URINE MICROSCOPIC (MICROSCOPIC)
[2024-05-26 18:31] LABS: Basophils # 0.1 K/mm3 (0-0.2); Basophils % 0.6 % (0.1-2.0); Eosinophils # 0.1 K/mm3 (0.0-0.4); Eosinophils % 0.7 % (0.1-12.0); Hematocrit 37.1 % (37.0-47.0); Hemoglobin 12.3 g/dL (12.2-16.2); Lymphocytes # 1.5 K/mm3 (0.7-4.5); Lymphocytes % 15.1 % (10-50); Mean Corpuscular HGB Conc 33.2 g/dL (31.8-35.4); Mean Corpuscular Hemoglobin 29.9 pg (27.0-31.2); Mean Corpuscular Volume 90.3 fl (81-99); Mean Platelet Volume 10.4 fl (7.4-10.4); Monocytes # 0.7 K/mm3 (0.1-1.0); Monocytes % 6.5 % (1.7-9.3); Neutrophils # 7.7 K/mm3 (1.8-7.8); Neutrophils % 76.1 % (37.0-80.0); Platelet Count 263 K/mm3 (142-424); Red Blood Count 4.11 M/mm3 (4.20-5.40); White Blood Count 10.1 K/mm3 (4.8-10.8)
[2024-05-26 18:34] LABS: Albumin Level 3.7 g/dl (3.5-5.0); Chloride 106 mmol/L (98-107); Potassium 3.6 mmoL/L (3.5-5.1); Sodium 134 mmol/L (136-145)
[2024-05-26 18:36] LABS: Appearance,Urine Clear (Clear); Bilirubin,Urine Negative (Negative); Blood, Urine Negative (Negative); Color,Urine Yellow (Yellow); Glucose,Urine (UA) Negative (Negative); Ketones,Urine Negative (Negative); Leukocyte Esterase,Urine 1+ (Negative); Nitrate,Urine Negative (Negative); Protein,Urine Negative (Negative); Specific Gravity, Urine 1.015 (1.005-1.030); Urobilinogen,Urine 0.2 EU/dl (0.2)
[2024-05-26 18:37] LABS: Alanine Aminotransferase 21 U/L (12-78); Albumin/Globulin Ratio 1.3 (1.1-1.8); Alkaline Phosphatase 112 U/L (38-126); Anion Gap 8.6 mEq/L (5-15); Aspartate Amino Transferase 24 U/L (14-36); Blood Urea Nitrogen 9 mg/dl (7-17); Calcium 9.8 mg/dl (8.4-10.2); Carbon Dioxide 23 mmol/L (22.0-30.0); Creatinine Clearance Estimated 148 mL/min (50-200); Estimated Glomerular Filt Rate 145 ml/min (>60); GFR (African American) 175 ML/MIN (>60); Globulin 2.9 g/dL (1.3-3.2); Glucose 111 mg/dl (74-100); Total Protein,Serum 6.6 g/dl (6.3-8.2)
[2024-05-26 18:47] LABS: Bilirubin,Total 0.1 mg/dl (0.2-1.3)
[2024-05-26 18:51] LABS: Bacteria,Urine 1+ /lpf
[2024-05-26 19:05] VITALS: BP 125/80
[2024-05-26 19:11] LABS: Uric Acid 4.7 mg/dl (2.5-6.2)
[2024-05-26 19:35] VITALS: BP 120/88; PULSE 95; O2SAT 97
[2024-05-26 19:52] LABS: Creatinine,Urine Random 33 mg/dL (Not Estab.)
== END 2024-05-26 20:20 | disposition home or self-care (01) ==
LOC: OBOUT 17:35 → OB 17:37
PROVIDERS: PCP Internal Medicine Adolescent Medicine; Visit Provider Obstetrics & Gynecology
DX: O10.913 Unspecified pre-existing hypertension complicating pregnancy, third trimester (principal); Z3A.34 34 weeks gestation of pregnancy
CPT/HCPCS: 36415; 80053; 81001; 82570; 84156; 84550; 85025; 87086; G0463

== ENCOUNTER 2024-05-28 08:02 | Outpatient (CLI) | payer BC, SELFPAY ==
[2024-05-28 12:11] LABS: Total Volume,Urine 1850 mL (600-1600)
[2024-05-28 12:19] LABS: Total Protein 24 Hour,Urine 148 mg/24 hr (40-90)
== END 2024-05-28 23:59 | disposition home or self-care (01) ==
LOC: LAB.DROPOF 08:03
PROVIDERS: PCP Internal Medicine Adolescent Medicine; Visit Provider Obstetrics & Gynecology
DX: R80.9 Proteinuria, unspecified (principal); Z3A.34 34 weeks gestation of pregnancy
CPT/HCPCS: 84155

== ENCOUNTER 2024-05-29 03:15 | Outpatient (CLI) | payer BC, SELFPAY | END 2024-05-29 23:59 | disposition home or self-care (01) | LOC: LAB.DROPOF 05-31 07:19 | PROVIDERS: PCP Obstetrics & Gynecology; Visit Provider Obstetrics & Gynecology | DX: Z34.83 Encounter for supervision of other normal pregnancy, third trimester (principal) | CPT/HCPCS: 86403 ==

== ENCOUNTER 2024-05-29 16:35 | Outpatient (CLI) | payer BC, SELFPAY ==
[2024-05-29 16:54] VITALS: BP 131/85; PULSE 101; RESP 18; TEMP 36.7; O2SAT 95; BMI 44.2
== END 2024-05-29 18:18 | disposition home or self-care (01) ==
LOC: OBOUT 16:38 → OB 16:39
PROVIDERS: PCP Internal Medicine Adolescent Medicine; Visit Provider Obstetrics & Gynecology
DX: O26.893 Other specified pregnancy related conditions, third trimester (principal); Z3A.36 36 weeks gestation of pregnancy; O36.8330 Maternal care for abnormalities of the fetal heart rate or rhythm, third trimester, not applicable or unspecified
CPT/HCPCS: G0463

== ENCOUNTER 2024-05-31 12:55 | Inpatient (IN) | payer BC, SELFPAY ==
[2024-05-31 13:04] VITALS: BMI 44.2
[2024-05-31 13:41] VITALS: BP 147/82; PULSE 102; RESP 17; TEMP 36.5; O2SAT 98; BMI 44.2
--- NOTE | 2024-05-31 14:21 | P.HP_ITS ---
History of Present Illness *Admission Date: 05/31/24 *Reason for visit:: Induction *History of present illness: Jennifer Parson is a 28-year-old at 36 weeks and 6 days gestation who presented to labor and delivery for a scheduled induction of labor. Her has been chronic hypertension, obesity. Her blood pressure was previously controlled with labetalol 200 mg twice daily, we recently had to increase to 3 times daily, and this week we had to add on nifedipine for robin nued blood pressure rises. On 05/28/2024 we completed a 24-hour urine and the total protein was 148. Her PIH labs have been within normal limits. On presentation patient endorsed good movement and denies any leakage of fluid or vaginal bleeding. O+, antibody negative, rubella non immune, hepatitis B negative, hepatitis C negative, RPR negative, HIV negative 1 hour GTT: 116 GBS unknown [facility] Disclaimer: The information contained in this section may have been updated after the patien t was seen, as this information can be updated by other users. Medical History Chronic hypertension Vitamin D deficiency Surgical History No significant past surgical history Family History Other Hypertension Social History Smoking Status: Never smoker alcohol intake: never current occupational status: employed Travel in the last 8 weeks: None Have you lived/traveled outside US in past 30 days?: No Contact w/someone who lives/traveled outside US past 30 days?: No Exposure to someone with infectious disease in past 14 days?: No Do you have a fever (greater than 100.4 F or 38 C)?: No Have you tested positive for COVID-19: No Exposed to someone with COVID-19 in past 14 days?: No Do you have a sore throat?: No Do you have a cough?: No Do you have any weakness?: No Do you have any diarrhea?: No Are you experiencing any unusual bleeding?: No Do you have any muscle aches/pain?: No Do you have any abdominal pain?: No Are you experiencing loss of taste or smell?: No Other Medical History Have you received the Flu Vaccine for this season: No Have you received the Pneumonia Vaccine: No Review of Systems Review of Systems Review of systems (narrative): Review of Systems Constitutional: Denies fever, chills, and sweats Eyes: Denies vision change/ pain Respiratory: Denies cough and shortness of breath Cardiovascular: Denies chest pain and lightheadedness Gastrointestinal: denies abdominal pain. Denies nausea, vomiting. Genitourinary: Denies dysuria and incontinence Musculoskeletal: Denies shoulder pain and back pain Neurological: Denies change in speech or headaches Meds Home Medications and Allergies Home Medications ?Medication ?Instructions ?Recorded ?Confirmed ?Type ergocalciferol (vitamin D2) 1,250 50,000 unit PO WEEKLY 07/22/23 05/31/24 History mcg (50,000 unit) capsule vits no.126-ferrous fum 1 tab PO DAILY 12/30/23 05/31/24 History 28 mg iron-folic acid 800 mcg tablet (Classic ) aspirin 81 mg tablet,delayed 81 mg PO DAILY 01/24/24 05/31/24 History release (Adult Aspirin Regimen) nifedipine 30 mg tablet,extended 30 mg PO DAILY #30 tabs 05/29/24 05/31/24 Rx release 24 hr (Procardia XL) labetalol 100 mg tablet 200 mg PO BID 05/31/24 05/31/24 History New Prescriptions to Start Prescriptions: Allergies Allergy/AdvReac Type Severity Reaction Status Date / Time No Known Allergies Allergy Verified 05/29/24 15:16 Exam Data for Last 24 hours I & O for Last 24 hours: Intake & Output 05/28/24 05/29/24 05/30/24 05/31/24 23:59 23:59 23:59 23:59 Weight 266 lb Narrative: General: patient is alert oriented in no acute distress and responds appropriately to questions. HEENT: NCAT, EOMI, moist mucous membranes, neck supple with full ROM Cardiovascular: RRR +S1/S2, no murmurs or rubs Pulmonary: Clear to auscultation bilaterally, nonlabored breathing, symmetric chest rise Abdominal: Gravid abdomen appropriate for gestation. No guarding, rebound, or tenderness noted. Extremities: +2 edema, no tenderness or cyanosis noted Skin: Normal turgor, intact, warm. Negative for erythema, pallor, petechia, or lesions Neurologic: Negative for sensory or motor deficit Psychiatric: Normal affect, normal thought process, good judgment and insight, no depression or anxious mood appreciated. *Routine HEENT Exam Head: Present normocephalic and atraumatic Eye: Present EOMI, PERRL and normal accommodation; Absent conjunctival icterus, scleral injection, nystagmus or exophthalmos ENT: Present mucous membranes moist *Routine Respiratory Exam Respiratory: Present CTA bilaterally, normal respiratory effort, able to speak in complete sentences and symmetric chest movement; Absent accessory muscle use, decreased breath sounds, rales, respiratory distress, wheezes, distant breath sounds or diminished air movement *Routine Cardiovascular Exam Cardiovascular: Present RRR, Normal S1 and Normal S2; Absent murmur or gallop *Routine Abdominal Exam Abdominal: Present soft and normoactive bowel sounds; Absent tenderness, distended, rebound or guarding *Routine Rectal Exam Rectal:: deferred *Routine Genitalia Exam Genitalia:: normal female Assessment and Plan *Assessment and plan (1) Vitamin D deficiency: Status: Acute Category: Medical Code(s): E55.9 - Vitamin D deficiency, unspecified (2) Obesity: Status: Acute Category: Medical Code(s): E66.9 - Obesity, unspecified (3) Chronic hypertension: Status: Acute Category: Medical Code(s): I10 - Essential (primary) hypertension (4) Encounter for induction of labor: Status: Acute Category: Medical Code(s): Z34.90 - Encounter for supervision of normal , unspecified, unspecified trimester Plan - Monitor vitals - Admit to L&D for induction of labor - Plan for induction with 50mcg of PO cytotec [id number] per protocol - External FHR and TOCO monitor - Exam on admission: 1.5/30/-4/posterior/firm - GBS unknown/ Blood type: O+ - Continue GBS prophylaxis with penicillin G [id number] - Hemoglobin: 12.3, Plt: 263 - Plan for epidural anesthesia - Anticipate vaginal delivery of male infant #Chronic HTN -Difficult to control -Deliver at 37w0d -[facility] labs appropriate will trend then and monitor BP closely -Continue home meds #Rubella Non Immune -residential treatment counselor and vaccinate
[2024-05-31 14:29] LABS: Microscopic, Urine URINE MICROSCOPIC (MICROSCOPIC)
[2024-05-31 14:30] LABS: Appearance,Urine CLEAR (Clear); Bilirubin,Urine Negative (Negative); Blood, Urine Negative (Negative); Color,Urine YELLOW (Yellow); Glucose,Urine (UA) Negative (Negative); Ketones,Urine TRACE (Negative); Leukocyte Esterase,Urine SMALL (Negative); Nitrate,Urine Negative (Negative); PH,Urine 6.5 (5.0-8.5); Protein,Urine Negative (Negative); Specific Gravity, Urine 1.025 (1.005-1.030); Urobilinogen,Urine 0.2 EU/dl (0.2)
[2024-05-31 14:32] LABS: Basophils % 0.3 % (0.1-2.0); Eosinophils # 0.1 K/mm3 (0.0-0.4); Eosinophils % 0.7 % (0.1-12.0); Hematocrit 34.3 % (37.0-47.0); Hemoglobin 11.9 g/dL (12.2-16.2); Lymphocytes # 1.3 K/mm3 (0.7-4.5); Lymphocytes % 13.9 % (10-50); Mean Corpuscular HGB Conc 34.7 g/dL (31.8-35.4); Mean Corpuscular Hemoglobin 31.1 pg (27.0-31.2); Mean Corpuscular Volume 89.6 fl (81-99); Mean Platelet Volume 10.2 fl (7.4-10.4); Monocytes # 0.6 K/mm3 (0.1-1.0); Neutrophils # 7.2 K/mm3 (1.8-7.8); Neutrophils % 77.8 % (37.0-80.0); Platelet Count 234 K/mm3 (142-424); Red Blood Count 3.83 M/mm3 (4.20-5.40); White Blood Count 9.2 K/mm3 (4.8-10.8)
[2024-05-31 14:34] LABS: Bacteria,Urine 2+ /lpf; RBC,Urine Occasional #/hpf (0-3)
--- NOTE | 2024-05-31 14:42 | P.CONPHA_ITS ---
Pharmacy Intervention Comments: MEDICATION RECONCILIATION COMPLETED ON PATIENT USING EXTERNAL FILL HISTORY FROM PHARMACY AND LIST FROM OFFENSIVE COORDINATOR OFFICE. -CRISTAL WILLISD
[2024-05-31] MEDS: LABETALOL 100MG TABLET 200 MG PO ×2 (15:29→21:36)
[2024-05-31] MEDS: miSOPROStol 100MCG TABLET 50 MCG PO ×2 (15:29→21:43)
[2024-05-31 15:32] VITALS: BP 141/83; PULSE 85
[2024-05-31 15:59] LABS: Creatinine,Urine Random 153 mg/dL (Not Estab.)
[2024-05-31 16:06] LABS: Uric Acid 4.5 mg/dl (2.5-6.2)
[2024-05-31 16:25] LABS: Activated Partial Thrombo Time 27.3 seconds (22.8-30.6); INR 0.88 (0.9-1.1)
[2024-05-31 16:39] VITALS: BP 141/83; PULSE 87
[2024-05-31 17:18] LABS: Fibrinogen 501 mg/dL (229.9-363.5)
[2024-05-31 20:09] VITALS: BP 124/67; PULSE 98; RESP 16; TEMP 36.8; O2SAT 98
[2024-05-31 21:34] VITALS: BP 139/37
[2024-06-01] MEDS: miSOPROStol 100MCG TABLET 50 MCG PO (03:50)
[2024-06-01 03:51] VITALS: BP 144/83; PULSE 85; RESP 18; TEMP 36.8; O2SAT 97
[2024-06-01 08:25] VITALS: BP 135/76; PULSE 80; RESP 18; TEMP 36.8; O2SAT 97
[2024-06-01] MEDS: LABETALOL 100MG TABLET 200 MG PO ×3 (08:26→20:49)
[2024-06-01] MEDS: AMPICILLIN SODIUM 2 GM in 0.9 % SODIUM CHLORIDE 100 ML IV ×3 (10:04→18:58)
[2024-06-01] MEDS: OXYTOCIN/RINGERS LACTATE 30 UNITS/500 ML BAG IV (10:05)
[2024-06-01] MEDS: DEXTROSE 5%-LACTATED RINGERS 1,000 ML 125 ML IV ×2 (10:05→18:02)
--- NOTE | 2024-06-01 10:14 | EXP.LABOR.NO ---
Labor Note Subjective: Date: 06/01/24 Time: 10:14 irregular contractions Objective: Cervical Dilation:: 2 Effacement:: 20% Station: -3 Membranes: ruptured and artificially ruptured Comment:: clear scant fluid. infatn and patient tolerated well Fetus: Monitoring?: Yes monitoring type:: External Assessment: Labor progressing?: Yes Plan: Anesthesia for epidural?: Yes Plan for ?: No Start pushing?: No
[2024-06-01 13:58] LABS: RPR W/RFX Titers Nonreactive (Nonreactive)
[2024-06-01] MEDS: LACTATED RINGERS 1000ML 1,000 ML 500 ML IV (17:09)
--- NOTE | 2024-06-01 18:40 | EXP.ANES.CKL ---
[facility] Disclaimer: The information contained in this section may have been updated after the patient was seen, as this information can be updated by other users. Medical History Chronic hypertension Vitamin D deficiency Surgical History No significant past surgical history Family History Other Hypertension Social History Smoking Status: Never smoker alcohol intake: never substance use type: denies use current occupational status: employed Travel in the last 8 weeks: None [facility] Anesthesia Checklist Patient Identification Patient Identification: Arm Band and Family Structural Data Admitted From: Inpatient Planned Operative Procedure/s: Labor epidural Consent for Planned Operative Procedure(s) Verified: Yes Verified Documents: Surgical Consent and History and Physical NPO Status Verified Time NPO: 00:00 Additional verifications Patient : Yes Anesthesia Reactions: No Hx Blood Transfusions: No Blood Transfusion Reaction: No Cephalosporin Allergy: No Previous Colonoscopy: No Airway Assessment Mallampati Score:: Class II C-Spine Mobility Assessed: Yes TMJ Mobility Assessed: Yes Dentition: Good Dentition Neurological Assessment Level of Consciousness: Awake, Alert, Appropriate and Follows Commands Hx Seizures: No Numbness or tingling in extremities: No Anesthesia Plan Anesthesia Risk discussed: Yes ASA Class: II Anesthesia Type: Epidural Preoperative Comments Pre-Operative Comments: 37 weeks gestation. Gestational hypertension. First baby.
[2024-06-01 19:58] VITALS: BP 153/89; PULSE 88; RESP 16; TEMP 37.1; O2SAT 99
--- NOTE | 2024-06-01 22:15 | EXP.LABOR.NO ---
Labor Note Subjective: Date: 06/01/24 Time: 22:15 Comment:: Comfortable with epidural. Objective: NST:: Reactive Contractions:: every 2-3 minutes Cervical Dilation:: 7 Effacement:: 90% Station: -2 Membranes: artificially ruptured Fetus: Monitoring?: Yes monitoring type:: External Assessment: Labor progressing?: No Problems: (1) Chronic hypertension affecting : Category: Medical Code(s): O10.919 - Unspecified pre-existing hypertension complicating , unspecified trimester (2) Maternal obesity affecting , antepartum: Qualifiers: Obesity type affecting : unspecified obesity Qualified Code(s): O99.210 - Obesity complicating , unspecified trimester Category: Medical Code(s): O99.210 - Obesity complicating , unspecified trimester (3) Encounter for induction of labor: Category: Medical Code(s): Z34.90 - Encounter for supervision of normal , unspecified, unspecified trimester (4) Failure to progress in labor: Category: Medical Code(s): O62.2 - Other uterine inertia Plan: Plan for ?: Yes Additional information:: Cervical exam at 1704 was 6/80/-2. She received an epidural. She requested to continue with external monitoring. Repeat cervical exam at 2024 was 7/90/-2. heart tracing category 2 with moderate variability and variable and early decelerations. Maternal position changes were performed to help baby descend. Moreau catheter was inserted. She was lisa every 3 minutes. Repeat cervical exam at 2131 was unchanged and caput was present. Baby's head was not applied to the cervix. Discussed exam findings with patient and her . Decision was made to proceed with primary secondary to failure to progress with category 2 strip. Discussed risks, benefits, alternatives, expectations and possible complications of surgery. All questions addressed and answered. She voiced understanding of risks and possible complications. Consent form signed. Proceed with primary
[2024-06-01] MEDS: CEFAZOLIN SODIUM 2 GM in 0.9 % SODIUM CHLORIDE 100 ML IV (22:55)
[2024-06-01 23:34] LABS: Cord Blood PH 7.34 (7.35-7.45)
[2024-06-02] VITALS (12 sets, daily range): BP systolic 115–155; BP diastolic 58–91; PULSE 88–108; RESP 16–22; TEMP 36.4–37; O2SAT 96–100
--- NOTE | 2024-06-02 00:08 | P.OP_ITS ---
Date of procedure: 06/02/24 Pre-op Diagnosis:: 1. IUP at 37 weeks 2. Chronic hypertension affecting 3. Maternal obesity 4. Failure to progress Post-op Diagnosis:: 1. IUP at 37 weeks 2. Chronic hypertension affecting 3. Maternal obesity 4. Failure to progress Procedure performed:: Primary Low Transverse Section Surgeon:: Cherelle Bryan DO Bulk Mail Technician(s):: Kimberlee Swanson, [employer] ENGINEER:: Kris Ramirez Anesthesia: epidural Estimated blood loss (mL): 600 Clinical Note:: Mrs Jennifer Parson is a 28-year-old at 36 weeks and 6 days gestation who presented to labor and delivery for a scheduled induction of labor. Her has been complicated by chronic hypertension and obesity. Her blood pressure was previously controlled with labetalol 200 mg twice daily. Recently her medication had to be increased to three times daily. This week nifedipine 30 mg daily was added secondary elevated blood pressures on Labetalol 200 mg TID. On 05/28/2024 a 24-hour urine total protein was 148. Her PIH labs have been within normal limits. She underwent induction of labor with Cytotec 50 mcg PO x 3 doses followed by amniotomy and Pitocin. She slowly progressed throughout the day. Cervical exam at 1703 was 6/80/-2. She received an epidural. She requested to continue with external monitoring. Repeat cervical exam at 2024 was 7/90/-2. heart tracing category 2 with moderate variability and variable and early decelerations. Maternal position changes were performed to help baby descend. Moreau catheter was inserted. She was lisa every 3 minutes. Repeat cervical exam at 2130 was unchanged and caput was present. Baby's head was not applied to the cervix. Discussed exam findings with patient and her . Decision was made to proceed with primary secondary to failure to progress with category 2 strip. Operative findings:: 1. Live male baby, Tres [place], weighing 7 lb 3 oz. APGARs 8 (1 min), 9 (5 min) 2. Nuchal cord x 1 3. Grossly normal appearing uterus, bilateral fallopian tubes and ovaries Operative note:: The risks, benefits and alternatives of the procedure were reviewed with the patient. Informed consent was obtained. Patient was taken to the operating room where epidural was bolused. The patient received 2 grams of Ancef preoperatively. Patient was placed in dorsal supine position with a leftward tilt. SCDs in place. Moreau catheter had been placed and was draining clear urine prior to the start of the procedure. heart tones were obtained. Vagina was prepped with Betadine swabs x 3. Patient was then prepped and draped in normal sterile fashion. Allis clamp test was performed to ensure adequate anesthesia. A Pfannenstiel skin incision was made 2 cm above pubic symphysis. This was carried through to underlying layer of fascia. Fascia was incised in midline, extended laterally with Hankins scissors. Superior aspect of fascial incision was grasped with two Navid clamps, elevated up, and rectus muscle dissected off bluntly and sharply with Hankins scissors. Inferior aspect of fascial incision was grasped with two Navid clamps, elevated up, and rectus muscle dissected off bluntly and sharply with Hankins scissors. The retcus muscle was then in the midline and the peritoneum was entered bluntly with a digit. Peritoneal incision was then extended superiorly and inferiorly with good visualization of the bladder. Yoav retractor was inserted. The lower uterine segment was incised in a transverse fashion. Small amount of clear amniotic fluid was noted. Head was delivered without difficulty. Nuchal x 1 was easily reduced. Remainder of body was delivered without difficulty. Mouth and nares were bulb suctioned. Spontaneous cry was noted. Delayed cord clamping was performed for 60 seconds. The umbilical cord was clamped and cut. The infant was handed to awaiting pediatric staff in stable condition. Dr. Franco was present. Apgars were 8(1 min), 9(5 min). Cord blood was obtained. Gentle traction on the umbilical cord and uterine fundal massage delivered the placenta. Placenta was intact. Placenta will be sent to pathology for review. Uterus was cleared of all clots and debris with a moist laparotomy sponge. Corners of the uterine incision were grasped with Allis clamps. The uterine incision was reapproximated with # 1 Vicryl suture in a running, locked stitch. Second layer of the same stitch was used to imbricate the incision. Vesicouterine peritoneum was reapproximated in a running locked stitch with 2-0 Vicryl suture. Hemostasis was noted. Posterior cul-de-sac was cleaned with moist laparotomy sponge. Gutters cleared of all clots and debris with a moist laparotomy sponge. Reinspection of the lower uterine segment demonstrated hemostasis. At this point all instruments and sponges were removed from the pelvis.? The peritoneum was grasped with Aby clamps x 3. The peritoneum was reapproximated with 0 Vicryl suture in a running stitch. The corners of the fascia were grasped with Navid clamps, and the fascia was reapproximated with two # 1 Vicryl suture overlapped to the right of midline. Subcutaneous tissue was irrigated with clear return of fluids. The subcutaneous tissue was reapproximated with 3-0 Vicryl. The skin was reapproximated with Insorb josi. Telfa was placed over closed Pfannenstiel skin incision. At the end of the procedure, the uterus was firm with minimal vaginal bleeding. Patient tolerated the procedure well. Instrument, sponges and needle counts were correct x 2. Mom and baby were transported to recovery room in stable condition. Condition: stable Disposition: floor Specimens:: 1. Placenta and umbilical cord 2. Cord blood Complications:: None
--- NOTE | 2024-06-02 01:04 | P.PNANES_ITS ---
[facility] Anesthesia Record Part I Anesthesia Record I Intake, IV Amount: 650 Hydration: Adequate Estimated blood loss (mL): 600 Urine output (mL): 200 Blood Products used (#): none Blood Pressure: 122/58 SaO2: 96 Pulse Rate: 108 Airway Patency: Patent Respiratory Rate: 22 Temperature: 97.6 F Patient is:: Awake and Stable Stable to PACU at:: 00:20 Comments:: Failure to progress. started at 2255 and complete at 0020. Tap lock done.
--- NOTE | 2024-06-02 01:16 | SUR.OPER ---
06/01/24 2321- viable male born at this time 06/01/24 2335- Joyce RT called with cord gas of 7.34. Dr Bryan notified, NNO
[2024-06-02] MEDS: OXYTOCIN/RINGERS LACTATE 30 UNITS/500 ML BAG 999 UNITS IV (01:17)
[2024-06-02] MEDS: ACETAMINOPHEN 500MG TAB 1000 MG PO ×4 (01:24→17:51)
[2024-06-02] MEDS: KETOROLAC 30MG/ML VIAL 30 MG IV ×4 (01:24→17:50)
[2024-06-02] MEDS: OXYTOCIN/RINGERS LACTATE 30 UNITS/500 ML BAG 40 UNITS IV (01:32)
[2024-06-02] MEDS: CEFAZOLIN SODIUM 2 GM in 0.9 % SODIUM CHLORIDE 100 ML IV ×2 (08:43→15:48)
[2024-06-02] MEDS: LABETALOL 100MG TABLET 200 MG PO ×2 (08:43→20:55)
--- NOTE | 2024-06-02 11:24 | EXP.ACUTE.PN ---
Subjective *Date: 06/02/24 *Time: 11:24 Interval history: POD # 1 s/p PLTCS Feeling well. Pain controlled. Breast feeding. Lochia is appropriate. Voiding without difficulty and passing flatus. Tolerating regular diet. Denies fever/chills, chest pain and shortness of breath. No headaches, vision changes, lightheadedness/dizziness. No lower extremity swelling. Ambulating well ad nikita. Medical Exam Vital signs and Labs for Last 24 Hours: Vital Signs Temp Pulse Pulse Resp BP BP Pulse Ox 06/02/24 03:53 98.5 F 88 16 115/64 98 06/02/24 01:06 97.6 F 108 H 22 122/58 L 06/02/24 00:50 95 H 17 126/60 100 06/02/24 00:40 95 H 17 132/80 100 06/02/24 00:36 106 H 18 122/60 100 06/02/24 00:30 101 H 17 130/74 98 06/02/24 00:20 97.6 F 97 H 18 122/58 L 97 06/01/24 19:58 98.7 F 88 16 153/89 H 99 O2 Del Method 06/02/24 03:53 Room Air 06/02/24 01:06 06/02/24 00:50 Room Air 06/02/24 00:40 Room Air 06/02/24 00:36 Room Air 06/02/24 00:30 Room Air 06/02/24 00:20 Room Air 06/01/24 19:58 Room Air Intake and Output 06/01/24 06/02/24 06/02/24 23:59 07:59 15:59 Intake Total 650 / 650 Output Total 400 / 400 150 / 150 Balance -400 / -400 500 / 500 Intake: Intake, Total IV Amount 650 / 650 Output: Output, Urine Amount (Catheter) 400 / 400 150 / 150 Moreau 400 / 400 150 / 150 Laboratory Results - last 24 hr 05/31/24 14:20: RPR w/Rflx to Titer Nonreactive 06/01/24 23:29: Cord ABG pH 7.34 L I & O for Labs for Last 24 Hours: Intake & Output 05/30/24 05/31/24 06/01/24 06/02/24 23:59 23:59 23:59 23:59 Intake Total 650 / 650 Output Total 400 / 400 150 / 150 Balance -400 / -400 500 / 500 Weight 266 lb Microbiology Reports for the Last 24 Hours: Microbiology 05/31/24 13:07 Urine,Clean Catch Urine Culture - Final Head: Present atraumatic and normocephalic ENT: Present normal exam Neck: Present normal inspection and full ROM Respiratory: Present CTA bilaterally and normal respiratory effort Cardiac: Present Reg Rate and Rhythm GI: Present soft and normal bowel sounds; Absent distention or tenderness Comments:: Pfannenstiel incision clean/dry/intact with steri strips in place. Uterine fundus firm and below umbilicus Rectal (female): Present deferred (female): Present deferred Extremities: Present full ROM; Absent edema or calf tenderness Neuro: Present alert, awake and moves all extremities Assessment and Plan *Assessment and plan (1) S/P : Status: Acute Category: Surgical Code(s): Z98.891 - History of uterine scar from previous surgery (2) Failure to progress in labor: Status: Acute Category: Medical Code(s): O62.2 - Other uterine inertia (3) Chronic hypertension affecting : Status: Acute Category: Medical Code(s): O10.919 - Unspecified pre-existing hypertension complicating , unspecified trimester (4) Maternal obesity affecting , antepartum: Status: Acute Qualifiers: Obesity type affecting : unspecified obesity Qualified Code(s): O99.210 - Obesity complicating , unspecified trimester Category: Medical Code(s): O99.210 - Obesity complicating , unspecified trimester Plan Continue routine care Encouraged increased ambulation AM Hgb 11.9 Plan d/c home POD # 2 or POD # 3
[2024-06-02] MEDS: PRENATAL MULTIVITAMIN W/IRON 1 EACH PO (15:48)
[2024-06-03] MEDS: ACETAMINOPHEN 500MG TAB 1000 MG PO ×2 (00:11→06:05)
[2024-06-03] MEDS: IBUPROFEN 400 MG TABLET 800 MG PO ×2 (00:11→08:21)
[2024-06-03 04:00] VITALS: BP 135/74; PULSE 102; RESP 18; TEMP 36.7; O2SAT 98
[2024-06-03 07:43] LABS: Basophils % 0.2 % (0.1-2.0); Eosinophils # 0.1 K/mm3 (0.0-0.4); Eosinophils % 0.8 % (0.1-12.0); Hematocrit 32.4 % (37.0-47.0); Hemoglobin 10.4 g/dL (12.2-16.2); Lymphocytes # 1.4 K/mm3 (0.7-4.5); Lymphocytes % 11.6 % (10-50); Mean Corpuscular HGB Conc 32.1 g/dL (31.8-35.4); Mean Corpuscular Hemoglobin 29.9 pg (27.0-31.2); Mean Corpuscular Volume 93.1 fl (81-99); Mean Platelet Volume 10.3 fl (7.4-10.4); Monocytes # 0.8 K/mm3 (0.1-1.0); Monocytes % 6.7 % (1.7-9.3); Neutrophils # 9.6 K/mm3 (1.8-7.8); Neutrophils % 79.5 % (37.0-80.0); Platelet Count 211 K/mm3 (142-424); Red Blood Count 3.48 M/mm3 (4.20-5.40); Red Cell Distribution Width 14.6 % (11.5-17.5); White Blood Count 12.1 K/mm3 (4.8-10.8)
[2024-06-03] MEDS: LABETALOL 100MG TABLET 200 MG PO (08:24)
[2024-06-03 08:29] VITALS: BP 125/76; PULSE 109; RESP 18; TEMP 36.9; O2SAT 99
[2024-06-03] MEDS: SIMETHICONE 80MG CHEWABLE TABLET 160 MG PO (10:26)
[2024-06-03] MEDS: SENNA 8.6MG TABLET 8.6 MG PO (10:26)
--- NOTE | 2024-06-03 11:22 | P.DS_ITS ---
General Admission date:: 05/31/24 Discharge date: 06/03/24 HPI HPI HPI: POD # 2 s/p PLTCS Feeling well. Pain controlled. Breast feeding. Lochia is appropriate. Voiding without difficulty and passing flatus. Tolerating regular diet. Denies fever/chills, chest pain and shortness of breath. No headaches, vision changes, lightheadedness/dizziness. Admit to lower extremity swelling. No calf pain. Ambulating well ad nikita. Hospital Course Hospital Course Hospital Course: Mrs Jennifer Parson is a 28-year-old at 36 weeks and 6 days gestation who presented to labor and delivery for a scheduled induction of labor. Her has been complicated by chronic hypertension and obesity. Her blood pressure was previously controlled with labetalol 200 mg twice daily. Recently her medication had to be increased to three times daily. This week nifedipine 30 mg daily was added secondary elevated blood pressures on Labetalol 200 mg TID. On 05/28/2024 a 24-hour urine total protein was 148. Her PIH labs have been within normal limits. She underwent induction of labor with Cytotec 50 mcg PO x 3 doses followed by amniotomy and Pitocin. She slowly progressed throughout the day. Cervical exam at 1703 was 6/80/-2. She received an epidural. She requested to continue with external monitoring. Repeat cervical exam at 2024 was 7/90/-2. heart tracing category 2 with moderate variability and variable and early decelerations. Maternal position changes were performed to help baby descend. Moreau catheter was inserted. She was lisa every 3 minutes. Repeat cervical exam at 2130 was unchanged and caput was present. Baby's head was not applied to the cervix. Discussed exam findings with patient and her . Decision was made to proceed with primary secondary to failure to progress with category 2 strip. She underwent primary on 06/01/24. She delivered a live male baby, Tres Huddleston, weighing 7 lb 3 oz. APGARs 8 (1 min), 9 (5 min). EBL 600 mL. She did well /postoperatively. Pain controlled. Breast feeding. Light lochia. Voiding without difficulty and passing flatus. Tolerating regular diet. Denies fever/chills, chest pain and shortness of breath. No headaches, dizziness/lightheadedness or vision changes. Vital signs stable, afebrile. Heart regular rate and rhythm. Lungs clear to auscultation. Abdomen soft, nontender. She had +3 bilateral lower extremity and pedal edema. No calf pain. Ambulating well ad nikita. Normal hospital course. She was discharged to home on POD # 2 with instructions to follow-up in the office in 3 days for BP check. Exam Data for Last 24 hours Vital signs and Labs for Last 24 Hours: Temp Pulse Resp BP Pulse Ox O2 Del Method 98.4 F 109 H 18 125/76 99 Room Air 06/03/24 08:29 06/03/24 08:29 06/03/24 08:29 06/03/24 08:29 06/03/24 08:29 06/03/24 08:29 Laboratory Results - last 24 hr 06/03/24 07:25: WBC 12.1 H D, RBC 3.48 L, Hgb 10.4 L, Hct 32.4 L, MCV 93.1, MCH 29.9, MCHC 32.1, RDW 14.6, Plt Count 211, MPV 10.3, Neut % (Auto) 79.5, Lymph % (Auto) 11.6, [place] % (Auto) 6.7, Eos % (Auto) 0.8, Baso % (Auto) 0.2, Neut # (Auto) 9.6 H, Lymph # (Auto) 1.4, [place] # (Auto) 0.8, Eos # (Auto) 0.1, Baso # (Auto) 0.0 I & O for Last 24 hours: Intake & Output 05/31/24 06/01/24 06/02/24 06/03/24 23:59 23:59 23:59 23:59 Intake Total 650 / 650 Output Total 400 / 400 950 / 950 Balance -400 / -400 -300 / -300 Weight 266 lb Microbiology Reports for the Last 24 Hours: Microbiology 05/31/24 13:07 Urine,Clean Catch Urine Culture - Final Constitutional Constitutional: no acute distress and cooperative *Routine HEENT Exam Head: Present normocephalic and atraumatic Eye: Absent conjunctivae pink ENT: Present mucous membranes moist *Routine Neck Exam Neck: Present full ROM *Routine Respiratory Exam Respiratory: Present CTA bilaterally and normal respiratory effort *Routine Cardiovascular Exam Cardiovascular: Present RRR *Routine Abdominal Exam Abdominal: Present soft; Absent tenderness or distended Comments: Pfannenstiel incision clean/dry/intact with steri strips in place *Routine Rectal Exam Patient deferred: visual exam *Routine Exam Patient deferred: external exam *Routine Extremities Exam Extremities: Present edema (+3 bilateral lower extremity and pedal edema ) and full ROM; Absent calf tenderness *Routine Neurological Exam Neurological: Present alert, moving all extremities and normal speech Routine Psychiatric Exam Psychiatric: Present normal affect and cooperative Results Data Completed and Pending Labs on day of discharge: Labs from last 24 hours 06/03/24 07:25 WBC 12.1 H D RBC 3.48 L Hgb 10.4 L Hct 32.4 L MCV 93.1 MCH 29.9 MCHC 32.1 RDW 14.6 Plt Count 211 MPV 10.3 Neut % (Auto) 79.5 Lymph % (Auto) 11.6 [place] % (Auto) 6.7 Eos % (Auto) 0.8 Baso % (Auto) 0.2 Neut # (Auto) 9.6 H Lymph # (Auto) 1.4 [place] # (Auto) 0.8 Eos # (Auto) 0.1 Baso # (Auto) 0.0 DS: Diagnosis Discharge Diagnosis (1) S/P : Status: Acute Code(s): Z98.891 - History of uterine scar from previous surgery (2) Failure to progress in labor: Status: Acute Code(s): O62.2 - Other uterine inertia (3) Chronic hypertension affecting : Status: Acute Code(s): O10.919 - Unspecified pre-existing hypertension complicating , unspecified trimester (4) Maternal obesity affecting , antepartum: Status: Acute Code(s): O99.210 - Obesity complicating , unspecified trimester Qualifiers: Obesity type affecting : unspecified obesity Qualified Code(s): O99.210 - Obesity complicating , unspecified trimester Meds Home Medications and Allergies Home Medications ?Medication ?Instructions ?Recorded ?Confirmed ?Type ergocalciferol (vitamin D2) 1,250 50,000 unit PO WEEKLY 07/22/23 05/31/24 History mcg (50,000 unit) capsule vits no.126-ferrous fum 1 tab PO DAILY 12/30/23 05/31/24 History 28 mg iron-folic acid 800 mcg tablet (Classic ) labetalol 100 mg tablet 200 mg PO BID 05/31/24 05/31/24 History ibuprofen 800 mg tablet 800 mg PO Q8H PRN pain #20 tabs 06/03/24 Rx oxycodone 5 mg tablet 5 mg PO Q4HP PRN Moderate Pain 06/03/24 Rx (4-6) #15 tabs New Prescriptions to Start Prescriptions: Cherelle Prado oxycodone Cherelle Bryan Allergies Allergy/AdvReac Type Severity Reaction Status Date / Time No Known Allergies Allergy Verified 05/29/24 15:16 Discharge Plan Disposition Patient Disposition: Home, Self-Care Condition: Good Discharge Order Discharge Orders: Discharge Order (Routine); Ordered 06/03/24 Ordered By: Cherelle Bryan Follow up Plan Follow up with: Tatyana Farrell DO [Staff Physician] - 06/06/24 (Call for appointment) Prescriptions/Medication Reconciliation: New oxycodone 5 mg Tablet 5 mg PO Q4HP PRN (Reason: Moderate Pain (4-6)) Qty: 15 0RF ibuprofen 800 mg tablet 800 mg PO Q8H PRN (Reason: pain) Qty: 20 0RF Continued ergocalciferol (vitamin D2) 1,250 mcg (50,000 unit) capsule 50,000 unit PO WEEKLY Patient Comments: TAKE 1 CAPSULE BY MOUTH ONCE WEEKLY FOR 12 WEEKS Classic 28 mg iron- 800 mcg tablet 1 tab PO DAILY labetalol 100 mg tablet 200 mg PO BID Discontinued aspirin [Adult Aspirin Regimen] 81 mg tablet,delayed release (DR/EC) 81 mg PO DAILY nifedipine [Procardia XL] 30 mg tablet extended release 24hr 30 mg PO DAILY Qty: 30 2RF Patient Comments: patient reports she is not taking medication Problem Reconciliation Problems Reviewed?: Yes Patient Discharge Instructions ACTIVITY: Limited activity DIET: continue same diet and regular diet Additional Instructions: Congratulations!! Discharge: 1. Take 800 mg Ibuprofen every 8 hours as needed for pain. You can also take 500-1000 mg of Tylenol in between doses, every 6-8 hours. If pain persists you can take Oxycodone 5 mg, 1 tablet every 4-6 hours or more as needed. 2. Nothing in the vagina for 6 weeks - no intercourse, douching or tampons. No tub baths/hot tubs or swimming pools - Drink plenty of fluids. - No driving for 7 days postop - Don't lift anything heavier than your in his pumpkin seat 3. Reasons to return to L&D or call On-Call doctor - fever (greater than 100.4) - heavy vaginal bleeding (soaking through 1 pad in less than 2 hours) - vaginal discharge (malodorous and/or purulent) - severe headaches not resolved by medication or rest 4. depression/blues - Normal to feel anxious/overwhelmed for first 2 weeks - Talk to your doctor if: severe anxiety, trouble bonding with baby, withdrawing from other family members, thoughts of harming yourself or others Cherelle Bryan DO [facility] [phone] Patient Instructions: Hypertension (Alternative Therapy), Depression, Hemorrhage, DI for , DI for Pre-eclampsia, Surgical Site Infection Print Language: Polish Providers Primary Care Provider: Gunnar Almonte Admit Provider: Tatyana Farrell Attending Provider: Tatyana Farrell
--- NOTE | 2024-06-04 13:08 | P.PNANES_ITS ---
[facility] Anesthesia Record Part II Anesthesia Record Part II Discharge Time: 00:50 Destination: Obstetric PACU nurse assessment reviewed?: Yes Patient Condition:: Good Anesthesia Complications:: None Swallowing reflex intact?: Yes Airway Patency: Patent Cyanosis?: No Blood Pressure: 126/60 SaO2: 100 Respiratory Rate: 17 Pulse Rate: 95 Temperature: 97.6 F Mental Status: Alert & Oriented Pain level:: 0 Nausea and/or vomitting:: Nauseated Intake, IV Amount: 0 Hydration: Adequate
[2024-06-04 13:09] VITALS: BP 126/60; PULSE 95; RESP 17; TEMP 36.4; O2SAT 100
--- NOTE | 2024-06-06 20:43 | PC.NURSE ---
Patient called around 1939 to report most recent BP was 163/105 but patient had just taken her Labetalol 10 minutes prior and it was late due to her napping. Patient denies headache or visual disturbances at time of BP measurement or during phone call. Instructed patient to recheck in 30 minutes to allow medication to kick in and to call back with updated BP. Dr. Frost was called as the OB occupational therapy program director around 2000 and discussed patient BP, current medication regimen, seen by Dr. Farrell in the office today, and instructions I gave to the patient to recheck BP. MD states if patient reports a BP under threshold for hypertensive crisis and is asymptomatic, patient may continue to monitor at home. Patient called back around 2019 and reported a BP of 146/108 and patient continues to deny headache or visual disturbances. Discussed MD recommendations and patient and agreeable. Patient encouraged to come to L&D if BP rises above threshold or if symptoms arise and patient verbalizes understanding of return precautions. Encouraged to call OB office tomorrow to update Dr. Farrell.
== END 2024-06-03 15:40 | disposition home or self-care (01) | DRG 788 ==
PROVIDERS: Obstetrics & Gynecology; Admitting Provider Obstetrics & Gynecology; PCP Internal Medicine Adolescent Medicine; Visit Provider Obstetrics & Gynecology
PROC: 10D00Z1 Extraction of Products of Conception, Low, Open Approach (ICD-10-PCS; CPT 59514; principal; 2024-06-01 23:00)
DX: O10.02 Pre-existing essential hypertension complicating childbirth (principal); O62.2 Other uterine inertia; E55.9 Vitamin D deficiency, unspecified; O99.214 Obesity complicating childbirth; Z3A.37 37 weeks gestation of pregnancy; E66.01 Morbid (severe) obesity due to excess calories; O69.81X0 Labor and delivery complicated by cord around neck, without compression, not applicable or unspecified; O76 Abnormality in fetal heart rate and rhythm complicating labor and delivery; Z37.0 Single live birth; Z79.899 Other long term (current) drug therapy
CPT/HCPCS: 36415; 59025; 81001; 82570; 82800; 84156; 84550; 85025; 85384; 85610; 85730; 86592; 86850; 87086; 94761; C9144; G0283; J0290; J0666; J0690; J1885; J2250; J3010; J7120

== ENCOUNTER 2024-06-07 12:46 | Inpatient (IN) | payer BC, SELFPAY ==
[2024-06-07] VITALS (14 sets, daily range): BP systolic 123–145; BP diastolic 64–93; PULSE 88–110; RESP 15–18; TEMP 36.9; O2SAT 94–98; BMI 43.1
[2024-06-07] MEDS: MAGNESIUM SULFATE IN WATER 4 GM/50 ML PIGGYBACK IV (13:40)
[2024-06-07] MEDS: LACTATED RINGERS 1000ML 1,000 ML 75 ML IV (13:40)
[2024-06-07] MEDS: MAGNESIUM SULFATE IN WATER 20 GM/500 ML IV.SOLN IV ×3 (13:40→23:08)
[2024-06-07 13:50] LABS: Microscopic, Urine URINE MICROSCOPIC (MICROSCOPIC)
[2024-06-07 13:53] LABS: Basophils # 0.1 K/mm3 (0-0.2); Basophils % 0.6 % (0.1-2.0); Eosinophils # 0.2 K/mm3 (0.0-0.4); Eosinophils % 2.4 % (0.1-12.0); Hematocrit 32.1 % (37.0-47.0); Hemoglobin 10.7 g/dL (12.2-16.2); Lymphocytes # 1.2 K/mm3 (0.7-4.5); Lymphocytes % 12.6 % (10-50); Mean Corpuscular HGB Conc 33.3 g/dL (31.8-35.4); Mean Corpuscular Hemoglobin 30.1 pg (27.0-31.2); Mean Corpuscular Volume 90.2 fl (81-99); Mean Platelet Volume 9.5 fl (7.4-10.4); Monocytes # 0.6 K/mm3 (0.1-1.0); Monocytes % 5.9 % (1.7-9.3); Neutrophils # 7.1 K/mm3 (1.8-7.8); Neutrophils % 76.6 % (37.0-80.0); Platelet Count 353 K/mm3 (142-424); Red Blood Count 3.56 M/mm3 (4.20-5.40); White Blood Count 9.3 K/mm3 (4.8-10.8)
[2024-06-07 13:55] LABS: Chloride 107 mmol/L (98-107)
[2024-06-07 13:56] LABS: Albumin Level 3.7 g/dl (3.5-5.0); Sodium 139 mmol/L (136-145)
[2024-06-07 13:57] LABS: Bilirubin,Urine Negative (Negative); Color,Urine YELLOW (Yellow); Glucose,Urine (UA) Negative (Negative); Ketones,Urine Negative (Negative); Nitrate,Urine Negative (Negative); PH,Urine 6.5 (5.0-8.5); Urobilinogen,Urine 0.2 EU/dl (0.2)
[2024-06-07 13:58] LABS: Blood Urea Nitrogen 10 mg/dl (7-17); Creatinine Clearance Estimated 123 mL/min (50-200); Estimated Glomerular Filt Rate 117 ml/min (>60); GFR (African American) 142 ML/MIN (>60)
[2024-06-07 13:59] LABS: Alanine Aminotransferase 35 U/L (12-78); Albumin/Globulin Ratio 1.3 (1.1-1.8); Alkaline Phosphatase 107 U/L (38-126); Aspartate Amino Transferase 41 U/L (14-36); Bilirubin,Total 0.2 mg/dl (0.2-1.3); Calcium 9.3 mg/dl (8.4-10.2); Carbon Dioxide 24 mmol/L (22.0-30.0); Globulin 2.8 g/dL (1.3-3.2); Glucose 104 mg/dl (74-100); Total Protein,Serum 6.5 g/dl (6.3-8.2)
[2024-06-07 14:01] LABS: Appearance,Urine Cloudy (Clear)
[2024-06-07 14:02] LABS: Blood, Urine 3+ (Negative); Leukocyte Esterase,Urine 3+ (Negative)
[2024-06-07 14:03] LABS: Activated Partial Thrombo Time 26.4 seconds (22.8-30.6); INR 0.91 (0.9-1.1); Prothrombin Time 10.3 seconds (10.1-12.5)
[2024-06-07 14:03] LABS: Protein,Urine Trace (Negative)
[2024-06-07 14:15] LABS: Creatinine,Urine Random 89 mg/dL (Not Estab.)
[2024-06-07 14:19] LABS: Uric Acid 5.9 mg/dl (2.5-6.2)
[2024-06-07 14:31] LABS: Bacteria,Urine 1+ /lpf; RBC,Urine 50-100 #/hpf (0-3); WBC,Urine 50-100 #/hpf (0-3)
--- NOTE | 2024-06-07 15:21 | PC.NURSE ---
Pt was unable to void with in this hour
[2024-06-07 16:16] LABS: Fibrinogen 483 mg/dL (229.9-363.5)
--- NOTE | 2024-06-07 17:10 | PC.NURSE ---
PT DENIES NEEDING TO VOID THIS HOUR
--- NOTE | 2024-06-07 17:55 | EXP.HP ---
History of Present Illness *Admission Date: 06/07/24 *Reason for visit:: hypertension *History of present illness: Jennifer is a 28yo who called the office today and reported severe range BP. She has had 4 total SR BP since discharge. She does have chronic HTN. She has had an episode of vision changes as well. denies headaches. -Reports pain is well-controlled -Reports she is tolerating p.o. without nausea or vomiting. -Reports her lochia is absent. -Ambulating, voiding difficulty or dysuria. Denies chest pain shortness of breath or pain in her legs. No further complaints at this time. [facility] Disclaimer: The information contained in this section may have been updated after the patient was seen, as this information can be updated by other users. Medical History Failure to progress in labor Maternal obesity affecting , antepartum Chronic hypertension affecting Chronic hypertension Vitamin D deficiency Surgical History S/P No significant past surgical history Family History Other Hypertension Social History (Updated 06/07/24 @ 13:52 by Niki Yap RN) Smoking Status: Never smoker alcohol intake: never substance use type: denies use current occupational status: employed Travel in the last 8 weeks: None Have you lived/traveled outside [place] in past 30 days?: No Contact w/someone who lives/traveled outside US past 30 days?: No Exposure to someone with infectious disease in past 14 days?: No Do you have a fever (greater than 100.4 F or 38 C)?: No Have you tested positive for COVID-19: No Exposed to someone with COVID-19 in past 14 days?: No Do you have a sore throat?: No Do you have a cough?: No Do you have any weakness?: No Are you experiencing any nausea/vomitting?: No Do you have any diarrhea?: No Are you experiencing any unusual bleeding?: No Do you have any muscle aches/pain?: No Do you have any abdominal pain?: No Are you experiencing loss of taste or smell?: No Other Medical History Have you received the Flu Vaccine for this season: No Have you received the Pneumonia Vaccine: No Review of Systems Review of Systems Review of systems (narrative): Review of Systems Constitutional: Denies fever, chills, and sweats Eyes: endorses vision change. dneies pain Respiratory: Denies cough and shortness of breath Cardiovascular: Denies chest pain and lightheadedness Gastrointestinal: denies abdominal pain. Denies nausea, vomiting. Genitourinary: Denies dysuria and incontinence Musculoskeletal: Denies shoulder pain and back pain Neurological: Denies change in speech or headaches Meds Home Medications and Allergies Home Medications ?Medication ?Instructions ?Recorded ?Confirmed ?Type ergocalciferol (vitamin D2) 1,250 50,000 unit PO WEEKLY 07/22/23 06/07/24 History mcg (50,000 unit) capsule vits no.126-ferrous fum 1 tab PO DAILY 12/30/23 06/07/24 History 28 mg iron-folic acid 800 mcg tablet (Classic ) labetalol 100 mg tablet 200 mg PO BID 05/31/24 06/07/24 History ibuprofen 800 mg tablet 800 mg PO TIDP PRN pain 06/07/24 06/07/24 History New Prescriptions to Start Prescriptions: Allergies Allergy/AdvReac Type Severity Reaction Status Date / Time No Known Allergies Allergy Verified 06/06/24 11:15 Exam Data for Last 24 hours Vital signs and Labs for Last 24 Hours: Pulse Resp BP Pulse Ox O2 Del Method 99 H 17 134/81 96 Room Air 06/07/24 16:09 06/07/24 16:09 06/07/24 16:09 06/07/24 16:09 06/07/24 16:09 Laboratory Results - last 24 hr 06/07/24 13:12: Urine Color Yellow, Urine Appearance Cloudy, Urine pH 6.5, Ur Specific [place] 1.020, Urine Protein Trace A, Urine Glucose (UA) Negative, Urine Ketones Negative, Urine Blood 3+ A, Urine Nitrate Negative, Urine Bilirubin Negative, Urine Urobilinogen 0.2, Ur Leukocyte Esterase 3+ A, Urine RBC 50-100, Urine WBC 50-100, Ur Squamous Epith Cells 5-10, Urine Bacteria 1+, Urine Creatinine 89, Urine Total Protein 26.0 H 06/07/24 13:35: WBC 9.3, RBC 3.56 L, Hgb 10.7 L, Hct 32.1 L, MCV 90.2, MCH 30.1, MCHC 33.3, RDW 14.0, Plt Count 353, MPV 9.5, Neut % (Auto) 76.6, Lymph % (Auto) 12.6, [place] % (Auto) 5.9, Eos % (Auto) 2.4, Baso % (Auto) 0.6, Neut # (Auto) 7.1, Lymph # (Auto) 1.2, [place] # (Auto) 0.6, Eos # (Auto) 0.2, Baso # (Auto) 0.1, PT 10.3, INR 0.91, APTT 26.4, Fibrinogen 483 H, Sodium 139, Potassium 4.0, Chloride 107, Carbon Dioxide 24, Anion Gap 12.0, BUN 10, Creatinine 0.60, Estimated Creat Clear 123, Estimated GFR 117, Est GFR ( Amer) 142, Glucose 104 H, Uric Acid 5.9, Calcium 9.3, Total Bilirubin 0.2, AST 41 H, ALT 35, Alkaline Phosphatase 107, Total Protein 6.5, Albumin 3.7, Globulin 2.8, Albumin/Globulin Ratio 1.3 I & O for Last 24 hours: Intake & Output 06/04/24 06/05/24 06/06/24 06/07/24 23:59 23:59 23:59 23:59 Intake Total 400 / 400 Output Total 800 / 800 Balance -400 / -400 Weight 259 lb Narrative: General: patient is alert oriented in no acute distress and responds appropriately to questions. HEENT: NCAT, EOMI, moist mucous membranes, neck supple with full ROM Cardiovascular: tachycardiac Pulmonary: Clear to auscultation bilaterally, nonlabored breathing, symmetric chest rise Extremities: +2 edema, no tenderness or cyanosis noted. normal +2/4 reflexes Neurologic: Negative for sensory or motor deficit Psychiatric: Normal affect, normal thought process, good judgment and insight, no depression or anxious mood appreciated. *Routine HEENT Exam Head: Present normocephalic and atraumatic Eye: Present EOMI, PERRL and normal accommodation; Absent conjunctival icterus, scleral injection, nystagmus or exophthalmos ENT: Present mucous membranes moist *Routine Respiratory Exam Respiratory: Present CTA bilaterally, normal respiratory effort, able to speak in complete sentences and symmetric chest movement; Absent accessory muscle use, decreased breath sounds, rales, respiratory distress, wheezes, distant breath sounds or diminished air movement *Routine Cardiovascular Exam Cardiovascular: Present RRR, Normal S1 and Normal S2; Absent murmur or gallop *Routine Abdominal Exam Abdominal: Present soft and normoactive bowel sounds; Absent tenderness, distended, rebound or guarding *Routine Rectal Exam Rectal:: deferred *Routine Genitalia Exam Genitalia:: normal female Assessment and Plan *Assessment and plan (1) S/P : Status: Acute Category: Surgical Code(s): Z98.891 - History of uterine scar from previous surgery (2) Chronic hypertension: Status: Acute Category: Medical Code(s): I10 - Essential (primary) hypertension (3) Obesity: Status: Acute Category: Medical Code(s): E66.9 - Obesity, unspecified (4) Preeclampsia: Status: Acute Category: Medical Code(s): O14.90 - Unspecified pre-eclampsia, unspecified trimester Plan Admit to labor and initiate magnesium for eclampsia prophylaxis PIH labs obtained. AST is slightly elevated at 41. Will recheck this tomorrow Will obtain a mag level at 4 to 6 hours post bolus Monitor I's and O's strictly Frequent assessments of reflexes, respiratory exam, and signs and symptoms for magnesium toxicity
--- NOTE | 2024-06-07 18:26 | PC.NURSE ---
PT DENIES NEEDING TO VOID THIS HOUR
--- NOTE | 2024-06-07 18:50 | PC.NURSE ---
Report received from Mercy Alonso RN.
[2024-06-07] MEDS: LABETALOL 100MG TABLET 200 MG PO (21:06)
--- NOTE | 2024-06-07 21:06 | PC.NURSE ---
Labetalol given as scheduled.
--- NOTE | 2024-06-07 21:11 | PC.NURSE ---
Wood Finisher here to draw pt's repeat Mag level.
[2024-06-07 22:14] LABS: Magnesium 5.1 mg/dl (1.6-2.3)
--- NOTE | 2024-06-07 23:00 | PC.NURSE ---
Pt ambulated to the bathroom to void, pt ambulated back to bed. SCUDs on bilaterally. Pt has her nurse call button within reach and she denies any current needs. Pt's has gone home with the their to take care of their dogs but he is planning to come back in a couple of hours.
[2024-06-08] VITALS (13 sets, daily range): BP systolic 116–147; BP diastolic 64–89; PULSE 81–94; RESP 15–18; TEMP 36.6–36.8; O2SAT 94–99
[2024-06-08] MEDS: IBUPROFEN 400 MG TABLET 800 MG PO ×2 (01:10→11:14)
--- NOTE | 2024-06-08 01:10 | PC.NURSE ---
Pt given Ibuprofen 800mf po for her abdominal pain rated 2 out of 10. Pt ambulated to the bathroom to void and is now back to bed, SCUDs on, and are pack at the bedside. Pt denies any current needs.
--- NOTE | 2024-06-08 06:01 | PC.NURSE ---
Pt ambulated to the bathroom to void and then ambulated back to bed, SCUDs back on. Pt has her nurse call button within reach and she denies any current needs.
--- NOTE | 2024-06-08 06:57 | PC.NURSE ---
Report given to Niki Yap RN
--- NOTE | 2024-06-08 07:30 | PC.NURSE ---
Pt denies needing to void within this hour
[2024-06-08] MEDS: LABETALOL 100MG TABLET 200 MG PO ×2 (08:08→12:19)
[2024-06-08 08:28] LABS: Basophils # 0.1 K/mm3 (0-0.2); Basophils % 0.6 % (0.1-2.0); Eosinophils # 0.2 K/mm3 (0.0-0.4); Eosinophils % 2.4 % (0.1-12.0); Hematocrit 33.6 % (37.0-47.0); Hemoglobin 11.2 g/dL (12.2-16.2); Lymphocytes # 1.1 K/mm3 (0.7-4.5); Lymphocytes % 12.2 % (10-50); Mean Corpuscular HGB Conc 33.3 g/dL (31.8-35.4); Mean Corpuscular Hemoglobin 30.3 pg (27.0-31.2); Mean Corpuscular Volume 90.8 fl (81-99); Mean Platelet Volume 9.2 fl (7.4-10.4); Monocytes # 0.6 K/mm3 (0.1-1.0); Neutrophils # 7.1 K/mm3 (1.8-7.8); Platelet Count 370 K/mm3 (142-424); Red Cell Distribution Width 14.2 % (11.5-17.5); White Blood Count 9.3 K/mm3 (4.8-10.8)
--- NOTE | 2024-06-08 08:30 | PC.NURSE ---
Pt denies needing to void this hour
[2024-06-08 08:34] LABS: Alanine Aminotransferase 36 U/L (12-78); Albumin Level 3.7 g/dl (3.5-5.0); Albumin/Globulin Ratio 1.3 (1.1-1.8); Alkaline Phosphatase 98 U/L (38-126); Anion Gap 14.8 mEq/L (5-15); Aspartate Amino Transferase 35 U/L (14-36); Bilirubin,Total 0.3 mg/dl (0.2-1.3); Blood Urea Nitrogen 9 mg/dl (7-17); Calcium 7.7 mg/dl (8.4-10.2); Carbon Dioxide 24 mmol/L (22.0-30.0); Chloride 103 mmol/L (98-107); Creatinine Clearance Estimated 123 mL/min (50-200); Estimated Glomerular Filt Rate 117 ml/min (>60); GFR (African American) 142 ML/MIN (>60); Globulin 2.8 g/dL (1.3-3.2); Glucose 117 mg/dl (74-100); Potassium 3.8 mmoL/L (3.5-5.1); Sodium 138 mmol/L (136-145); Total Protein,Serum 6.5 g/dl (6.3-8.2)
[2024-06-08] MEDS: MAGNESIUM SULFATE IN WATER 20 GM/500 ML IV.SOLN IV (09:32)
--- NOTE | 2024-06-08 11:22 | PC.NURSE ---
magnesium d/c at 1110
--- NOTE | 2024-06-08 13:15 | PC.NURSE ---
Pts IV D/C'd from Lt hand
--- NOTE | 2024-06-08 13:17 | P.DS_ITS ---
General Admission date:: 06/07/24 Discharge date: 06/08/24 HPI HPI HPI: Jennifer is a 28yo who called the office today and reported severe range BP. She has had 4 total SR BP since discharge. She does have chronic HTN. She has had an episode of vision changes as well. denies headaches. -Reports pain is well-controlled -Reports she is tolerating p.o. without nausea or vomiting. -Reports her lochia is absent. -Ambulating, voiding difficulty or dysuria. Denies chest pain shortness of breath or pain in her legs. No further complaints at this time. Hospital Course Hospital Course Hospital Course: Jennifer was admitted for preeclampsia and 24 hours of magnesium. She is diuresed well. Her PIH labs are within normal limits. She is doing well and her swelling is improving. She will be discharged home with short interval follow-up. She will continue her antihypertensive regimen Exam Data for Last 24 hours Vital signs and Labs for Last 24 Hours: Temp Pulse Resp BP Pulse Ox O2 Del Method 98.2 F 85 17 125/70 99 Room Air 06/08/24 08:07 06/08/24 12:13 06/08/24 12:13 06/08/24 12:13 06/08/24 12:13 06/08/24 13:00 Laboratory Results - last 24 hr 06/07/24 13:12: Urine Color Yellow, Urine Appearance Cloudy, Urine pH 6.5, Ur Specific [place] 1.020, Urine Protein Trace A, Urine Glucose (UA) Negative, Urine Ketones Negative, Urine Blood 3+ A, Urine Nitrate Negative, Urine Bilirubin Negative, Urine Urobilinogen 0.2, Ur Leukocyte Esterase 3+ A, Urine RBC 50-100, Urine WBC 50-100, Ur Squamous Epith Cells 5-10, Urine Bacteria 1+, Urine Creatinine 89, Urine Total Protein 26.0 H 06/07/24 13:35: WBC 9.3, RBC 3.56 L, Hgb 10.7 L, Hct 32.1 L, MCV 90.2, MCH 30.1, MCHC 33.3, RDW 14.0, Plt Count 353, MPV 9.5, Neut % (Auto) 76.6, Lymph % (Auto) 12.6, [place] % (Auto) 5.9, Eos % (Auto) 2.4, Baso % (Auto) 0.6, Neut # (Auto) 7.1, Lymph # (Auto) 1.2, [place] # (Auto) 0.6, Eos # (Auto) 0.2, Baso # (Auto) 0.1, PT 10.3, INR 0.91, APTT 26.4, Fibrinogen 483 H, Sodium 139, Potassium 4.0, Chloride 107, Carbon Dioxide 24, Anion Gap 12.0, BUN 10, Creatinine 0.60, Estimated Creat Clear 123, Estimated GFR 117, Est GFR ( Amer) 142, Glucose 104 H, Uric Acid 5.9, Calcium 9.3, Total Bilirubin 0.2, AST 41 H, ALT 35, Alkaline Phosphatase 107, Total Protein 6.5, Albumin 3.7, Globulin 2.8, Albumin/Globulin Ratio 1.3 06/07/24 17:52: Magnesium 4.0 H 06/07/24 21:14: Magnesium 5.1 H D 06/08/24 08:18: WBC 9.3, RBC 3.70 L, Hgb 11.2 L, Hct 33.6 L, MCV 90.8, MCH 30.3, MCHC 33.3, RDW 14.2, Plt Count 370, MPV 9.2, Neut % (Auto) 77.0, Lymph % (Auto) 12.2, [place] % (Auto) 6.0, Eos % (Auto) 2.4, Baso % (Auto) 0.6, Neut # (Auto) 7.1, Lymph # (Auto) 1.1, [place] # (Auto) 0.6, Eos # (Auto) 0.2, Baso # (Auto) 0.1, Sodium 138, Potassium 3.8, Chloride 103, Carbon Dioxide 24, Anion Gap 14.8, BUN 9, Creatinine 0.60, Estimated Creat Clear 123, Estimated GFR 117, Est GFR ( Amer) 142, Glucose 117 H, Calcium 7.7 L, Total Bilirubin 0.3, AST 35, ALT 36, Alkaline Phosphatase 98, Total Protein 6.5, Albumin 3.7, Globulin 2.8, Albumin/Globulin Ratio 1.3 I & O for Last 24 hours: Intake & Output 06/05/24 06/06/24 06/07/24 06/08/24 23:59 23:59 23:59 23:59 Intake Total 2502 / 2502 1000 / 1000 Output Total 3600 / 3600 3500 / 3500 Balance -1098 / -1098 -2500 / -2500 Weight 259 lb Constitutional Constitutional: no acute distress and cooperative *Routine HEENT Exam Head: Present normocephalic and atraumatic Eye: Absent conjunctivae pink ENT: Present mucous membranes moist *Routine Neck Exam Neck: Present full ROM *Routine Respiratory Exam Respiratory: Present CTA bilaterally and normal respiratory effort *Routine Cardiovascular Exam Cardiovascular: Present RRR *Routine Abdominal Exam Abdominal: Present soft; Absent tenderness or distended Comments: Pfannenstiel incision clean/dry/intact with steri strips in place *Routine Rectal Exam Patient deferred: visual exam *Routine Exam Patient deferred: external exam *Routine Extremities Exam Extremities: Present edema (+2 bilateral lower extremity and pedal edema - improving) and full ROM; Absent calf tenderness *Routine Neurological Exam Neurological: Present alert, moving all extremities and normal speech Routine Psychiatric Exam Psychiatric: Present normal affect and cooperative Results Data Completed and Pending Labs on day of discharge: Labs from last 24 hours 06/08/24 06/07/24 06/07/24 08:18 21:14 17:52 WBC 9.3 RBC 3.70 L Hgb 11.2 L Hct 33.6 L MCV 90.8 MCH 30.3 MCHC 33.3 RDW 14.2 Plt Count 370 MPV 9.2 Neut % (Auto) 77.0 Lymph % (Auto) 12.2 [place] % (Auto) 6.0 Eos % (Auto) 2.4 Baso % (Auto) 0.6 Neut # (Auto) 7.1 Lymph # (Auto) 1.1 [place] # (Auto) 0.6 Eos # (Auto) 0.2 Baso # (Auto) 0.1 PT INR APTT Fibrinogen Sodium 138 Potassium 3.8 Chloride 103 Carbon Dioxide 24 Anion Gap 14.8 BUN 9 Creatinine 0.60 Estimated Creat Clear 123 Estimated GFR 117 Est GFR ( Amer) 142 Glucose 117 H Uric Acid Calcium 7.7 L Magnesium 5.1 H D 4.0 H Total Bilirubin 0.3 AST 35 ALT 36 Alkaline Phosphatase 98 Total Protein 6.5 Albumin 3.7 Globulin 2.8 Albumin/Globulin Ratio 1.3 Urine Color Urine Appearance Urine pH Ur Specific [place] Urine Protein Urine Glucose (UA) Urine Ketones Urine Blood Urine Nitrate Urine Bilirubin Urine Urobilinogen Ur Leukocyte Esterase Urine RBC Urine WBC Ur Squamous Epith Cells Urine Bacteria Urine Creatinine Urine Total Protein 06/07/24 06/07/24 13:35 13:12 WBC 9.3 RBC 3.56 L Hgb 10.7 L Hct 32.1 L MCV 90.2 MCH 30.1 MCHC 33.3 RDW 14.0 Plt Count 353 MPV 9.5 Neut % (Auto) 76.6 Lymph % (Auto) 12.6 [place] % (Auto) 5.9 Eos % (Auto) 2.4 Baso % (Auto) 0.6 Neut # (Auto) 7.1 Lymph # (Auto) 1.2 [place] # (Auto) 0.6 Eos # (Auto) 0.2 Baso # (Auto) 0.1 PT 10.3 INR 0.91 APTT 26.4 Fibrinogen 483 H Sodium 139 Potassium 4.0 Chloride 107 Carbon Dioxide 24 Anion Gap 12.0 BUN 10 Creatinine 0.60 Estimated Creat Clear 123 Estimated GFR 117 Est GFR ( Amer) 142 Glucose 104 H Uric Acid 5.9 Calcium 9.3 Magnesium Total Bilirubin 0.2 AST 41 H ALT 35 Alkaline Phosphatase 107 Total Protein 6.5 Albumin 3.7 Globulin 2.8 Albumin/Globulin Ratio 1.3 Urine Color Yellow Urine Appearance Cloudy Urine pH 6.5 Ur Specific [place] 1.020 Urine Protein Trace A Urine Glucose (UA) Negative Urine Ketones Negative Urine Blood 3+ A Urine Nitrate Negative Urine Bilirubin Negative Urine Urobilinogen 0.2 Ur Leukocyte Esterase 3+ A Urine RBC 50-100 Urine WBC 50-100 Ur Squamous Epith Cells 5-10 Urine Bacteria 1+ Urine Creatinine 89 Urine Total Protein 26.0 H DS: Diagnosis Discharge Diagnosis (1) S/P : Status: Acute Code(s): Z98.891 - History of uterine scar from previous surgery (2) Chronic hypertension: Status: Acute Code(s): I10 - Essential (primary) hypertension (3) Obesity: Status: Acute Code(s): E66.9 - Obesity, unspecified (4) Preeclampsia: Status: Acute Code(s): O14.90 - Unspecified pre-eclampsia, unspecified trimester Meds Home Medications and Allergies Home Medications ?Medication ?Instructions ?Recorded ?Confirmed ?Type ergocalciferol (vitamin D2) 1,250 50,000 unit PO WEEKLY 07/22/23 06/07/24 History mcg (50,000 unit) capsule vits no.126-ferrous fum 1 tab PO DAILY 12/30/23 06/07/24 History 28 mg iron-folic acid 800 mcg tablet (Classic ) ibuprofen 800 mg tablet 800 mg PO TIDP PRN pain 06/07/24 06/07/24 History labetalol 100 mg tablet 200 mg (2 x 100 mg) PO TID #90 tabs 06/08/24 Rx New Prescriptions to Start Prescriptions: labetalol Tatyana Farrell Allergies Allergy/AdvReac Type Severity Reaction Status Date / Time No Known Allergies Allergy Verified 06/06/24 11:15 Discharge Plan Disposition Patient Disposition: Home, Self-Care Discharge Order Discharge Orders: Discharge Order (Routine); Ordered 06/08/24 Ordered By: Tatyana Farrell Follow up Plan Follow up with: Tatyana Farrell DO [Staff Physician] - 1 week Prescriptions/Medication Reconciliation: New labetalol 100 mg Tablet 200 mg PO TID Qty: 90 0RF Continued ergocalciferol (vitamin D2) 1,250 mcg (50,000 unit) capsule 50,000 unit PO WEEKLY Patient Comments: TAKE 1 CAPSULE BY MOUTH ONCE WEEKLY FOR 12 WEEKS Classic 28 mg iron- 800 mcg tablet 1 tab PO DAILY ibuprofen 800 mg tablet 800 mg PO TIDP PRN (Reason: pain) Discontinued labetalol 100 mg tablet 200 mg PO BID Problem Reconciliation Problems Reviewed?: Yes Patient Discharge Instructions ACTIVITY: Continue current activity DIET: regular diet Patient Instructions: DI for Pre-eclampsia Print Language: Moroccan Providers Primary Care Provider: Gunnar Almonte Admit Provider: Tatyana Farrell Attending Provider: Tatyana Farrell
== END 2024-06-08 14:00 | disposition home or self-care (01) | DRG 776 ==
LOC: OBOUT 12:46 → OB 12:46
PROVIDERS: Obstetrics & Gynecology; Admitting Provider Obstetrics & Gynecology; PCP Internal Medicine Adolescent Medicine; Visit Provider Obstetrics & Gynecology
DX: O11.5 Pre-existing hypertension with pre-eclampsia, complicating the puerperium (principal); O10.93 Unspecified pre-existing hypertension complicating the puerperium; O99.215 Obesity complicating the puerperium; E66.9 Obesity, unspecified; E55.9 Vitamin D deficiency, unspecified
CPT/HCPCS: 36415; 80053; 81001; 82570; 83735; 84156; 84550; 85025; 85384; 85610; 85730; 87086; 94761; G0283; J7120

== ENCOUNTER 2024-10-22 12:56 | Outpatient (CLI) | payer BC, SELFPAY | END 2024-10-22 23:59 | disposition home or self-care (01) | PROVIDERS: PCP Internal Medicine Adolescent Medicine; Visit Provider Obstetrics & Gynecology | DX: Z34.90 Encounter for supervision of normal pregnancy, unspecified, unspecified trimester (principal); N92.6 Irregular menstruation, unspecified | CPT/HCPCS: 36415; 84144; 84702 ==

== ENCOUNTER 2024-10-24 10:49 | Outpatient (CLI) | payer BC, SELFPAY | END 2024-10-24 23:59 | disposition home or self-care (01) | LOC: LAB 10:50 | PROVIDERS: PCP Internal Medicine Adolescent Medicine; Visit Provider Obstetrics & Gynecology | DX: Z34.90 Encounter for supervision of normal pregnancy, unspecified, unspecified trimester (principal); Z3A.00 Weeks of gestation of pregnancy not specified | CPT/HCPCS: 36415; 84702 ==

== ENCOUNTER 2024-11-20 15:41 | Outpatient (CLI) | payer BC, SELFPAY ==
--- NOTE | 2024-11-20 15:45 | US_ITS ---
PROCEDURE: US OB TRANSVAGINAL CLINICAL INDICATION: dates and viability COMPARISON: No exams were available for comparison FINDINGS: Transvaginal sonographic images of the pelvis were obtained. From her last menstrual period she is . An intrauterine gestational sac is present with a pole with a crown-rump length of 1.6cm This correlates to a gestational age of 8weeks 1day. ASHLEY 07/01/2025 heart tones are present with an FHR of 179bpm. Yolk sac is noted. The yolk sac measures 5.2mm. The right ovary is seen and appears normal. The left ovary is seen and appears normal. There is no fluid in the cul-de-sac. IMPRESSION: 1. Viable embryo within uterine cavity. Heart rate activity is seen. 2. The embryo measures 8 weeks 1 day and ASHLEY will be 07/01/2025. 3. Both ovaries are seen and appear normal. 4. No fluid in the cul-de-sac. Dictated by: Robert Frost MD 11/20/2024 17:08 Robert Frost MD in [facility] 11/20/2024 17:08
== END 2024-11-20 23:59 | disposition home or self-care (01) ==
LOC: RAD 15:42
PROVIDERS: PCP Internal Medicine Adolescent Medicine; Visit Provider Obstetrics & Gynecology
DX: O10.911 Unspecified pre-existing hypertension complicating pregnancy, first trimester (principal); O09.291 Supervision of pregnancy with other poor reproductive or obstetric history, first trimester; O09.891 Supervision of other high risk pregnancies, first trimester; O36.80X0 Pregnancy with inconclusive fetal viability, not applicable or unspecified; Z3A.08 8 weeks gestation of pregnancy
CPT/HCPCS: 76817; 87086

== ENCOUNTER 2024-12-04 15:15 | Outpatient (CLI) | payer BC, SELFPAY ==
[2024-12-07 21:17] LABS: Neisseria gonorrhoeae, NAA Negative (Negative)
== END 2024-12-04 23:59 | disposition home or self-care (01) ==
LOC: LAB.DROPOF 12-05 09:26
PROVIDERS: PCP Obstetrics & Gynecology; Visit Provider Obstetrics & Gynecology
DX: O09.891 Supervision of other high risk pregnancies, first trimester (principal); O10.911 Unspecified pre-existing hypertension complicating pregnancy, first trimester; Z87.59 Personal history of other complications of pregnancy, childbirth and the puerperium
CPT/HCPCS: 87491; 87591

== ENCOUNTER 2024-12-05 16:23 | Outpatient (CLI) | payer BC, SELFPAY ==
[2024-12-05 17:19] LABS: Hematocrit 37.3 % (37.0-47.0); Hemoglobin 12.7 g/dL (12.2-16.2); Immature Granulocytes % 0.6 %; Mean Corpuscular HGB Conc 34.0 g/dL (31.8-35.4); Mean Corpuscular Hemoglobin 30.3 pg (27.0-31.2); Mean Corpuscular Volume 89.0 fl (81-99); Nucleated Red Blood Cells % 0 %; Platelet Count 270 K/mm3 (142-424); Red Blood Count 4.19 M/mm3 (4.20-5.40); Red Cell Distribution Width-SD 44.7 fL; White Blood Count 9.1 K/mm3 (4.8-10.8)
[2024-12-05 18:41] LABS: Hepatitis C Ab Qual. W/ RFX NEGATIVE (Negative)
[2024-12-06 15:07] LABS: RPR W/RFX Titers Nonreactive (Nonreactive)
[2024-12-07 07:11] LABS: Hepatitis B Surface Antigen Negative (Negative)
[2024-12-07 08:22] LABS: Rubella Antibodies, IgG <0.90 index (Immune >0.99)
== END 2024-12-05 23:59 | disposition home or self-care (01) ==
LOC: LAB 16:24
PROVIDERS: PCP Internal Medicine Adolescent Medicine; Visit Provider Obstetrics & Gynecology
DX: O10.919 Unspecified pre-existing hypertension complicating pregnancy, unspecified trimester (principal); O09.299 Supervision of pregnancy with other poor reproductive or obstetric history, unspecified trimester; Z3A.00 Weeks of gestation of pregnancy not specified
CPT/HCPCS: 36415; 85025; 86592; 86762; 86803; 86850; 87340; 87389

== ENCOUNTER 2025-02-12 08:51 | Outpatient (CLI) | payer BC, SELFPAY ==
--- NOTE | 2025-02-12 09:00 | US_ITS ---
PROCEDURE: US OB /MATERNAL DETAIL CLINICAL INDICATION: 20 wk anatomy scan COMPARISON: US US OB TRANSVAGINAL from 11/20/2024 FINDINGS: Transabdominal sonographic images of the pelvis were obtained. From her established due date she is 20 weeks 1 day. Single viable intrauterine gestation. Breech position. Placenta: Anteriorplacenta grade 1. There is an average amount of fluid. The cervix appears satisfactory. Closed and measuring 4.65 cm in length. Complete survey performed and was unremarkable on the submitted images as in PACS. No discrete anomalies identified on survey imaging by technologist. Active fetus. Three-vessel cord with satisfactory umbilical cord insertion. 4- chamber heart noted. [place], aortic arch, appear normal. The rest of the cardiac exam was incomplete secondary to position. Survey of brain & ventricles Unremarkable. Cerebellum, thalamus, choroid plexus, cisterna magna appear normal. Face and neck survey unremarkable. Profile, nasion, lips and nose appeared normal. Diaphragm and chest views unremarkable. Abdomen: Both kidneys noted and unremarkable. Stomach and bladder noted and satisfactory. Spine: Survey of the spine satisfactory with no anomalies identified nor imaged. Cervical, thoracic, lower spine appear normal. Both arms and legs noted. Amniotic Fluid: Adequate. MVP 3.44 cm Measurements: Average ultrasound age 20weeks 4days. Estimated due date by ultrasound age 0406/28/2025. Estimated weight 370g BPD = 20weeks 2days HC = 20weeks 2days AC = 21weeks 2days FL = 20weeks 2days Growth Percentile= 75 Heart Rate = 143bpm Cerebellum = 20weeks 4days Humerus = 19weeks 6days HC/AC is 1.1 FL/BPD is 0.7 FL/AC is 0.2 IMPRESSION: 1. Viable fetus in the breech presentation with an anterior placenta grade 1. 2. The fluid is within normal limits with an MVP 3.44 cm. 3. The cardiac exam was incomplete and suboptimal due to position. Suggest repeat scan in 2 weeks. 4. The rest of the anatomical scan appears normal. 5. biometry is consistent with the dates. Dictated by: Robert Frost MD 02/12/2025 11:28 Robert Frost MD in [facility] 02/12/2025 11:28
== END 2025-02-12 23:59 | disposition home or self-care (01) ==
LOC: RAD 08:51
PROVIDERS: PCP Internal Medicine Adolescent Medicine; Visit Provider Obstetrics & Gynecology
DX: O32.1XX0 Maternal care for breech presentation, not applicable or unspecified (principal); O10.912 Unspecified pre-existing hypertension complicating pregnancy, second trimester; Z3A.20 20 weeks gestation of pregnancy
CPT/HCPCS: 76811

== ENCOUNTER 2025-02-26 14:54 | Outpatient (CLI) | payer BC, SELFPAY ==
--- NOTE | 2025-02-26 14:45 | US_ITS ---
PROCEDURE: US OB FOLLOW UP CLINICAL INDICATION: f/u on cardiac views COMPARISON: US US OB TRANSVAGINAL from 11/20/2024 US US OB /MATERNAL DETAIL from 02/12/2025 FINDINGS: Transabdominal sonographic images of the pelvis were obtained. The following parameters are obtained: From her established due date she is 22weeks 1day Viable fetus in the cephalic presentation with an anterior placenta grade 1. The cervix measures heart rate: 132bpm bpm. Amniotic fluid: Subjectively appears normal. No obvious anomalies evident. profile seen, stomach, bladder, kidneys, three-vessel cord, four chamber heart appear normal. cardiac scan: LVOT, RVOT, three-vessel view, four-chamber heart appear normal. IMPRESSION: 1. Viable fetus in the cephalic presentation with an anterior placenta grade 1. 2. The fluid is within normal limits. 3. Complete cardiac exam appears normal. 4. The rest of the limited anatomical scan appears normal. Dictated by: Robert Frost MD 02/26/2025 16:00 Robert Frost MD in [place] 02/26/2025 16:00
== END 2025-02-26 23:59 | disposition home or self-care (01) ==
LOC: RAD 14:56
PROVIDERS: PCP Internal Medicine Adolescent Medicine; Visit Provider Obstetrics & Gynecology
DX: O10.912 Unspecified pre-existing hypertension complicating pregnancy, second trimester (principal); O09.292 Supervision of pregnancy with other poor reproductive or obstetric history, second trimester; Z3A.22 22 weeks gestation of pregnancy
CPT/HCPCS: 76816